=== PATIENT | female | born 1985 | race Two or more races ===

== ENCOUNTER 2024-07-14 22:50 | Inpatient (IN) | payer BC, OTHER ==
[~2024-07-14] VITALS: Ht 170.2 cm; Wt 64.7 kg
[2024-07-14 23:04] VITALS: PULSE 98; RESP 28; O2SAT 100
--- NOTE | 2024-07-14 23:37 | ED.PDOC ---
History of Present Illness HPI Comments 38-year-old female who came to ER for high blood pressure. Patient does have history of hypertension, congestive heart failure and anxiety. States she has been anxious all day, has been having panic attacks. She started having palpitations and shortness of breath which progressively worsened. On scene, paramedics recorded a systolic blood pressure of 280. 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 Hx Family History Family History: Reviewed,noncontributory to illness Social History Smoker: Non-Smoker Alcohol: Denies ETOH Use Drugs: Denies Drug Use Lives In: Home Constitutional: denies: chills, diaphoresis, fatigue, fever, malaise, sweats, weakness, others EENTM: denies: blurred vision, double vision, ear bleeding, ear discharge, ear drainage, ear pain, ear ringing, eye pain, eye redness, hearing loss, mouth pain, mouth swelling, nasal discharge, nose bleeding, nose congestion, nose pain, photophobia, tearing, throat pain, throat swelling, voice changes, others Respiratory: reports: SOB at rest, shortness of breath, SOB with excertion; denies: cough, hemoptysis, orthopnea, stridor, wheezing, others Cardiovascular: reports: palpitations; denies: chest pain, dizzy spells, diaphoresis, Dyspnea on exertion, edema, irregular heart beat, left arm pain, lightheadedness, PND, syncope, others Gastrointestinal: denies: abdomen distended, abdominal pain, blood streaked bowels, constipated, diarrhea, dysphagia, difficulty swallowing, hematemesis, melena, nausea, poor appetite, poor fluid intake, rectal bleeding, rectal pain, vomiting, others Genitourinary: denies: abnormal vagina bleeding, burning, dyspareunia, dysuria, flank pain, frequency, hematuria, incontinence, pain, , vagina discharge, urgency, others Neurological: denies: dizziness, fainting, headache, left sided numbness, left sided weakness, numbness, paresthesia, pre-existing deficit, right sided numbness, right sided weakness, seizure, speech problems, tingling, tremors, weakness, others Musculoskeletal: denies: back pain, gout, joint pain, joint swelling, muscle pain, muscle stiffness, neck pain, others Integumetry: denies: bruises, change in color, change in hair/nails, dryness, laceration, lesions, lumps, rash, wounds, others Allergic/Immunocompromised: denies: Difficulty Healing, Frequent Infections, Hives, Itching, others Hematologic/Lymphatic: denies: anemia, blood clots, easy bleeding, easy bruising, swollen glands, others Endocrine: denies: excessive hunger, excessive sweating, excessive thirst, excessive urination, flushing, intolerance to cold, intolerance to heat, unexplained weight gain, unexplained weight loss, others Psychiatric: reports: anxiety, panic disorder; denies: bipolar disorder, depression, hopeless, schizophrenia, sleepless, suicidal, others Physical Exam General Appearance: No Apparent Distress, Normal HEENT: Normal ENT Inspection, Pharynx Normal, TMs Normal Neck: Full Range of Motion, Non-Tender, Normal, Normal Inspection Respiratory: Chest Non-Tender, Lungs Clear, No Accessory Muscle Use, No Respiratory Distress, Normal Breath Sounds Cardiovascular: No Edema, No JVD, No Murmur, No Gallop, Normal Peripheral Pulses, Regular Rate/Rhythm Breast Exam: Deferred Gastrointestinal: No Organomegaly, Non Tender, No Pulsatile Mass, Normal Bowel Sounds, Soft Genitalia: Deferred Pelvic: Deferred Rectal: Deferred Extremities: No calf tenderness, Normal capillary refill, Normal inspection, Normal range of motion, Non-tender, No pedal edema Musculoskeletal : Apperance: Normal Neurologic: Alert, fire warden II-XII nml as Tested, No Motor Deficits, Normal Affect, Normal Mood, No Sensory Deficits Cerebellar Function: Normal Reflexes: Normal Skin: Dry, Normal Color, Warm Lymphatic: No Adenopathy Was a procedure done? Was a procedure done?: No Differential Dx Considerations may include: Anemia, electrolyte imbalance, anxiety, hypertensive urgency, congestive heart failure X-Ray, Labs, Meds, VS Vital Signs Date Time Temp Pulse Resp B/P (MAP) Pulse Ox O2 Delivery O2 Flow Rate FiO2 07/15/24 00:16 208/139 07/14/24 23:54 100 249/167 07/14/24 23:52 100 24 243/167 07/14/24 23:30 99.0 104 26 227/71 (122) 90 07/14/24 23:02 105 Lab Test 07/14/24 23:43 Range/Units White Blood Count 9.3 4.4-10.8 10^3/uL Red Blood Count 4.39 4.0-5.20 10^6/uL Hemoglobin 12.7 12.2-16.2 g/dL Hematocrit 38.6 36.0-46.0 % Mean Corpuscular Volume 87.9 80.0-100.0 fL Mean Corpuscular Hemoglobin 29.0 28.0-32.0 pg Mean Corpuscular Hemoglobin Concent 33.0 32.0-36.0 g/dL Red Cell Distribution Width 15.1 H 11.8-14.3 % Platelet Count 308 140-450 10^3/uL Mean Platelet Volume 8.8 6.9-10.8 fL Neutrophils (%) (Auto) 82.2 H 37.0-80.0 % Lymphocytes (%) (Auto) 13.2 10.0-50.0 % Monocytes (%) (Auto) 3.8 0.0-12.0 % Eosinophils (%) (Auto) 0.1 0.0-7.0 % Basophils (%) (Auto) 0.7 0.0-2.0 % Neutrophils # (Auto) 7.7 1.6-8.6 10 ^3/uL Lymphocytes # (Auto) 1.2 0.4-5.4 10 ^3/uL Monocytes # (Auto) 0.4 0-1.3 10 ^3/uL Eosinophils # (Auto) 0 0-0.8 10 ^3/uL Basophils # (Auto) 0.1 0-0.2 10 ^3/uL Nucleated Red Blood Cells 0.1 % Sodium Level 137 136-145 mmol/L Potassium Level 3.4 L 3.5-5.1 mmol/L Chloride Level 102 98-107 mmol/L Carbon Dioxide Level 22 20-31 mmol/L Anion Gap 13 5-15 Blood Urea Nitrogen 41 H 9-23 mg/dL Creatinine 3.22 H 0.550-1.02 mg/dL Glomerular Filtration Rate Calc 18 >90 mL/min BUN/Creatinine Ratio 12.7 10.0-20.0 Serum Glucose 118 H 74-106 mg/dL Calcium Level 9.4 8.7-10.4 mg/dL Total Bilirubin 1.2 H 0.2-1.0 mg/dL Aspartate Amino Transferase (AST) 249 H 13-40 U/L Alanine Aminotransferase (ALT) 169 H 7-40 U/L Alkaline Phosphatase 120 H 46-116 U/L Troponin I High Sensitivity 255 *H </=34 ng/L B-Type Natriuretic Peptide > 5000.00 0-100 pg/mL Total Protein 6.9 5.7-8.2 g/dL Albumin 3.8 3.2-4.8 g/dL Current Medications Medications (Trade) Dose Ordered Sig/Yolanda Route Start Time Stop Time Status Last Admin Furosemide (Lasix Injection) 20 mg ONCE ONCE IV 07/14/24 23:30 07/14/24 23:31 DC 07/15/24 00:16 Morphine Sulfate 4 mg ONCE ONCE IV 07/14/24 23:30 07/14/24 23:31 DC 07/14/24 23:52 Ondansetron HCl (Zofran) 4 mg ONCE ONCE IV 07/14/24 23:30 07/14/24 23:31 DC 07/14/24 23:53 Labetalol HCl (Labetalol HCl) 20 mg ONCE ONCE IV 07/14/24 23:30 07/14/24 23:31 DC 07/14/24 23:54 Time of 1ST Reevaluation: 23:30 Reevaluation 1ST: Unchanged Time of 2ND Reevaluation: 00:56 Reevaluation 2ND: Unchanged Patient Education/Counseling: Diagnosis, Treatment Family Education/Counseling: No Family Present Departure 1 Departure Time of Disposition: 00:56 Impression: Primary Impression: Acute coronary syndrome Additional Impressions: Hypertensive emergency Congestive heart failure Disposition: ADMITTED INPATIENT Admit to: Tele Condition: Guarded Critical Care Note Critical Care Time?: Yes (35 min-critical care time only) Critical care comment: Hypertensive urgency Total critical care time: Approximately 36 minutes Due to a high probability of clinically significant, life threatening deterioration, the patient required my highest level of preparedness to intervene emergently and I personally spent this critical care time directly and personally managing the patient. This critical care time included obtaining a history; examining the patient; pulse oximetry; ordering and review of studies; arranging urgent treatment with development of a management plan; evaluation of patient's response to treatment; frequent reassessment; and, discussions with other providers. This critical care time was performed to assess and manage the high probability of imminent, life-threatening deterioration that could result in multi-organ failure. It was exclusive of separately billable procedures and treating other patients. Stability Stability form required: No Heart Score Heart Score: Heart Score Response (Comments) Value History Moderate Suspicious 1 EKG Repolarization Disturb 1 Age <45 0 Risk Factors 1 or 2 risk factors 1 Troponin >3 x's Normal limit 2 Total 5 I personally scribed for MURALI DOUGLAS MD ([email or web address]) on 07/14/24 at 23:37. Electronically submitted by Harley Corrales ([facility]). MURALI DOUGLAS MD Jul 14, 2024 23:37
[2024-07-14] MEDS: MORPHINE SULFATE 4 MG/ML SYR/VIAL IV ONE (23:52)
[2024-07-14] MEDS: ONDANSETRON HCL 4 MG/2 ML VIAL IV ONE (23:53)
[2024-07-14] MEDS: LABETALOL HCL 20 MG/4 ML VL IV ONE (23:54)
[2024-07-14 23:57] LABS: Basophils # (auto) 0.1 10 ^3/uL (0-0.2); Basophils % (auto) 0.7 % (0.0-2.0); Eosinophils # (auto) 0 10 ^3/uL (0-0.8); Eosinophils % (auto) 0.1 % (0.0-7.0); Hematocrit 38.6 % (36.0-46.0); Hemoglobin 12.7 g/dL (12.2-16.2); Lymphocytes # (auto) 1.2 10 ^3/uL (0.4-5.4); Lymphocytes % (auto) 13.2 % (10.0-50.0); Mean Corpuscular Volume 87.9 fL (80.0-100.0); Monocytes # (auto) 0.4 10 ^3/uL (0-1.3); Monocytes % (auto) 3.8 % (0.0-12.0); Neutrophils # (auto) 7.7 10 ^3/uL (1.6-8.6); Neutrophils % (auto) 82.2 % (37.0-80.0); Nucleated Red Blood Cells % 0.1 %; Platelet Count (auto) 308 10^3/uL (140-450); Red Blood Cells 4.39 10^6/uL (4.0-5.20); Red Cell Distribution Width 15.1 % (11.8-14.3); White Blood Cell 9.3 10^3/uL (4.4-10.8)
[2024-07-15 00:12] LABS: Albumin 3.8 g/dL (3.2-4.8); Anion Gap 13 (5-15); BUN/Creatinine Ratio 12.7 (10.0-20.0); Calcium 9.4 mg/dL (8.7-10.4); Carbon Dioxide 22 mmol/L (20-31); Chloride 102 mmol/L (98-107); Sodium 137 mmol/L (136-145)
[2024-07-15 00:13] LABS: Bilirubin, Total 1.2 mg/dL (0.2-1.0); Total Protein 6.9 g/dL (5.7-8.2)
[2024-07-15] MEDS: FUROSEMIDE 20 MG/2 ML VIAL IV ONE (00:16)
[2024-07-15 00:23] LABS: Alanine Aminotransferase 169 U/L (7-40); Alkaline Phosphatase 120 U/L (46-116); Aspartate Aminotransferase 249 U/L (13-40); Blood Urea Nitrogen 41 mg/dL (9-23); Glucose 118 mg/dL (74-106); Potassium 3.4 mmol/L (3.5-5.1)
--- NOTE | 2024-07-15 00:34 | DVH ---
EXAM: XY CHEST PORTABLE CLINICAL HISTORY: SOB TECHNIQUE: Single AP view of the chest WID: COMPARISON: None FINDINGS: Lines and tubes: None Chest: Cardiomegaly with pulmonary vascular congestion. Small left pleural effusion. Mixed airspace opacities in the bilateral lung bases greater on the rig ht. No pneumothorax. The osseous structures are grossly intact. IMPRESSION: 1. Cardiomegaly with pulmonary vascular congestion. 2. Small left pleural effusion. 3. Mixed airspace opacities in the bilateral lung bases, greater on the right which could reflect mul tifocal pneumonia, atelectasis, or pulmonary edema.
[2024-07-15] MEDS: ASPirin 81 mg TAB PO ONE (00:59)
[2024-07-15] MEDS: LABETALOL HCL 20 MG/4 ML VL IV ONE (01:00)
--- NOTE | 2024-07-15 02:44 | DVHHPRES ---
History of Present Illness Resident Creating Document: SOPHIE KEN RESIDENT History of Present Illness Patient is 38-year-old female with past medical history of hypertension, systolic congestive heart failure, pneumothorax, acute respiratory failure and anxiety/panic attacks presented to hospital with chief complaint of worsening shortness of breath, lower extremity swelling and palpitation. During initial evaluation by paramedics patient blood pressure was high at 280, initiated on oxygen. Patient was given antihypertensive medication in emergency department. At the time of evaluation patient continued shortness of breath, on oxygen via nasal cannula around 5-7 L saturating 98%, however patient denying any chest pain. Patient continued to palpitation and shortness of breath. Patient is alert oriented to time place and person able to answer however in mild distress. No any other complaints including headache, fever, chills, cough, sputum produc tion, abdominal pain, muscular weakness, sensory deficits. Given uncontrolled blood pressure, elevated troponin, elevated BNP and x-ray findings showing of pulmonary edema patient will be admitted to the hospital for further management of hypertension and heart failure. Past Medical History Systolic CHF, hypertension, pneumothorax, acute respiratory failure, history of multiple previous episode of TIARA Past Surgical History None Past Social History Patient admitting smoking methamphetamine two days ago. Chronic drug abuse. Patient denying any other drug use. Review of Systems Review of Systems Eyes: No Pain, No Vision change, No Conjunctivae inflammation, No Eyelid inflammation, No Other, No Redness ENT: No Ear pain, No Ear discharge, No Nose pain, No Nose discharge, No Nose c ongestion, No Mouth pain, No Mouth swelling, No Throat pain, No Throat swelling, No Other Cardiovascular: No Chest Pain, No Palpitations, No Orthopnea, No Paroxysmal Noc. Dyspnea, No Edema, No Lt Headedness, No Other Respiratory: No Cough, No Dry, Shortness of breath, No SOB with excertion, No Wheezing, No Hemoptysis, No Pleuritic Pain, No Sputum, No Other Gastrointestinal: No Nausea, No Vomiting, No Abdominal Pain, No Diarrhea, No Constipation, No Melena, No Hematochezia, No Other Genitourinary: No Dysuria, No Frequency, No Incontinence, No Hematuria, No Retention, No Other Musculoskeletal: No other, No neck pain, No shoulder pain, No arm pain, No back pain, No hand pain, No leg pain, No foot pain Skin: No Rash, No Lesions, No Jaundice, No Bruising, No Other Allergies: Coded Allergies: NO KNOWN ALLERGIES (Unverified , 07/14/24) Exam Vital Signs Vital Signs Date Time Temp Pulse Resp B/P (MAP) Pulse Ox O2 Delivery O2 Flow Rate FiO2 07/15/24 01:00 98 213/144 07/14/24 23:52 24 07/14/24 23:30 99.0 90 Exam General Appearance: Cooperative. Well developed. Well nourished. NAD Head Exam: Normal inspection Neck Exam: Normal inspection. Non-tender. Normal alignment Pulmonary/Respiratory: Chest non-tender. Bilateral lower lung base crackles. Cardiovascular/Chest: Regular rhythm, tachycardia. No murmurs. No JVD. Peripheral Pulses: 2+ Radial (R). 2+ Radial (L). 2+ Pedal (R). 2+ Pedal (L) Abdominal Exam: Normal bowel sounds. Soft. Nontender. No hepatospenomegaly. No masses Ankle Exam: Negative ankle edema Lower extremities: 3+ bilateral lower extremity edema Neuro/Mental Status: A&O x4. Coherent Thoughts/Psych: Normal thought pattern. Appropriate mood and affect. Good judgement and insight Appearance: In no acute distress Skin Exam: Normal inspection. Normal color. Warm. Dry Labs/Xrays Labs Test 07/15/24 00:52 07/14/24 23:43 Range/Units Troponin I High Sensitivity 239 *H </=34 ng/L White Blood Count 9.3 4.4-10.8 10^3/uL Red Blood Count 4.39 4.0-5.20 10^6/uL Hemoglobin 12.7 12.2-16.2 g/dL Hematocrit 38.6 36.0-46.0 % Mean Corpuscular Volume 87.9 80.0-100.0 fL Mean Corpuscular Hemoglobin 29.0 28.0-32.0 pg Mean Corpuscular Hemoglobin Concent 33.0 32.0-36.0 g/dL Red Cell Distribution Width 15.1 H 11.8-14.3 % Platelet Count 308 140-450 10^3/uL Mean Platelet Volume 8.8 6.9-10.8 fL Neutrophils (%) (Auto) 82.2 H 37.0-80.0 % Lymphocytes (%) (Auto) 13.2 10.0-50.0 % Monocytes (%) (Auto) 3.8 0.0-12.0 % Eosinophils (%) (Auto) 0.1 0.0-7.0 % Basophils (%) (Auto) 0.7 0.0-2.0 % Neutrophils # (Auto) 7.7 1.6-8.6 10 ^3/uL Lymphocytes # (Auto) 1.2 0.4-5.4 10 ^3/uL Monocytes # (Auto) 0.4 0-1.3 10 ^3/uL Eosinophils # (Auto) 0 0-0.8 10 ^3/uL Basophils # (Auto) 0.1 0-0.2 10 ^3/uL Nucleated Red Blood Cells 0.1 % Sodium Level 137 136-145 mmol/L Potassium Level 3.4 L 3.5-5.1 mmol/L Chloride Level 102 98-107 mmol/L Carbon Dioxide Level 22 20-31 mmol/L Anion Gap 13 5-15 Blood Urea Nitrogen 41 H 9-23 mg/dL Creatinine 3.22 H 0.550-1.02 mg/dL Glomerular Filtration Rate Calc 18 >90 mL/min BUN/Creatinine Ratio 12.7 10.0-20.0 Serum Glucose 118 H 74-106 mg/dL Calcium Level 9.4 8.7-10.4 mg/dL Total Bilirubin 1.2 H 0.2-1.0 mg/dL Aspartate Amino Transferase (AST) 249 H 13-40 U/L Alanine Aminotransferase (ALT) 169 H 7-40 U/L Alkaline Phosphatase 120 H 46-116 U/L B-Type Natriuretic Peptide > 5000.00 0-100 pg/mL Total Protein 6.9 5.7-8.2 g/dL Albumin 3.8 3.2-4.8 g/dL Assessment/Plan Assessment/Plan Hypertensive emergency Acute on chronic systolic heart failure Acute respiratory failure due to above NSTEMI type 2 likely due to CHF exacerbation Hypertensive encephalopathy Questionable pneumonia Gram-positive versus Gram-negative TIARA on CKD stage 4 likely hemodynamically mediated in setting of CHF Hypokalemia Transaminitis History of drug abuse History of pneumothorax Plan -initiate Lasix drip at 4 milligram/hour rate, continue to monitor urine output -patient was given beta rocco labetalol for hypertensive emergency, avoid beta rocco given underlying heart failure and pulmonary edema. -we will give p.r.n. clonidine/hydralazine as needed for controlling blood pressure, currently blood pressure is ranging around 180/110. -can resume home medication when necessary: Lisinopril 40 mg p.o. daily, hydrochlorothiazide 25 mg p.o. daily, amlodipine 5 mg p.o. daily, clonidine 0.5 mg/day patch, metoprolol tartrate 50 mg p.o. daily, carvedilol 12.5 mg p.o. daily. -follow with head CT, echocardiogram. -cardiology consultation for hypertensive emergency, CHF and NSTEMI -nephrology consultation for TIARA on CKD stage 4 -antibiotic with ceftriaxone azithromycin, follow with sputum culture. -admit to telemetry. Given uncontrolled hypertension, CHF and TIARA patient will be benefitted from inpatient hospitalization for further management and evaluation. We are expecting more than two days of stay for hospitalization. Code status discussed greater than 22 minutes, full code. Plan discussed with Dr Manuel Plan discussed with: Patient, Other (RN) My Orders Orders - SOPHIE KEN RESIDENT Procedure Category Date Status Time Sodium Chl 0.9% PHA 07/15/24 In Process (So... W/Furosemide 02:30 Abdomen Limited US 07/15/24 Logged 02:[address] 07/15/24 Logged 02:22 Echo 2d Mode Cardiac US 07/15/24 Logged DOP 02:22 * Cardiology Consult CONS 07/15/24 Transmitted 02:23 Urinalysis LAB 07/15/24 Logged 02:24 Drug Screen LAB 07/15/24 Logged 02:24 Atorvastatin (Lipitor) PHA 07/15/24 Logged 02:30 Aspirin Tablet PHA 07/15/24 Logged 10:00 Atorvastatin (Lipitor) PHA 07/15/24 Logged 22:00 Clonidine Hcl Tablet PHA 07/15/24 Logged (Catapres Tablet) 02:30 Ceftriaxone 1gm/50ml PHA 07/16/24 Logged D5w (Rocephin) 09:00 Ceftriaxone 1gm/50ml PHA 07/15/24 Logged D5w (Rocephin) 02:30 Azithromycin 500mg/ PHA 07/16/24 Logged 250ml (Zithromax 50 10:00 Azithromycin 500mg/ PHA 07/15/24 Logged 250ml (Zithromax 50 02:30 Potassium Effervesent PHA 07/15/24 Logged Tab (Klor-Con/Ef) 02:30 Magnesium LAB 07/15/24 Transmitted 02:31 Date of Service: Jul 15, 2024 Billing Provider: ROBBY MANUEL MD Common Visit Codes: [id number] INP/OBS CARE (HIGH) SOPHIE KEN RESIDENT Jul 15, 2024 02:44 ROBBY MANUEL MD Jul 15, 2024 10:41
[2024-07-15] MEDS: FUROSEMIDE INJECTION 10 ML ONE (02:45)
[2024-07-15] MEDS: FUROSEMIDE INJECTION 100 MG in SODIUM CHL 0.9% 100 ML IV ONE (02:48)
[2024-07-15] MEDS: hydrALAZINE HCL 20 MG/ML VL IV ONE ×2 (02:50→09:16)
[2024-07-15] MEDS: metOLazone 5 MG TAB PO ONE (02:55)
[2024-07-15] MEDS: cefTRIAXone 1GM/50ML D5W 50 ML IV ONE (03:00)
[2024-07-15] MEDS: ATORVASTATIN 20 MG TAB PO ONE (03:01)
[2024-07-15] MEDS: POTASSIUM EFFERVESENT TAB 25 MEQ PO ONE ×2 (03:02→15:54)
--- NOTE | 2024-07-15 03:35 | DVH ---
Examination: HWOCT CLINICAL INDICATION: ;hypertensive encephalopathy DIREAS;Reason for Exam: Portable;Portable;Modes of Transportation DITRAN S;How is patient transported? ;1 ITS.LMP;Last menstrual period: N;No;Yes/No/Unknown ITS.PREG; ? COMPARISON: None. CONTRAST USED: None. TECHNIQUE: A plain CT study of brain is performed. The examination was performed obtaining 5 mm slic es without contrast. CT scan was done according to ALARA (As Low as Reasonably Achievable). Multiplan ar reconstructions were obtained. FINDINGS: SUPRATENTORIAL BRAIN: Cerebral Hemispheres: There is no midline shift or mass effect, intra or extra-axial fluid collection s or hemorrhage. Periventricular White Matter/Basal Ganglia: No abnormal areas of altered attenuation within the periv entricular white matter or basal ganglia. POSTERIOR FOSSA: The brainstem is normal and the visualized cerebellar hemispheres are unremarkable. VENTRICULAR SYSTEM: Slightly asymmetrical both lateral ventricles with the left one being prominent, a normal variation. There is no evidence of hydrocephalus or transependymal flow of cerebrospinal fluid. SKULL BASE AND PARASELLAR REGION: The skull base is normal with no parasellar masses or abnormalities identified. CALVARIUM AND SCALP REGION: Hyperdensities noted over bilateral parieto-occipital scalp. Advised cli nical correlation. PARANASAL SINUSES: No significant inflammatory changes are identified in the visualized paranasal si nuses. IMPRESSION: 1. No evidence of acute large vessel territorial ischemic infarction or intraparenchymal hematoma in current study. 2. Chronic and / or ancillary findings as described above. 3. Advised further evaluation with MRI brain without contrast if clinically indicated. Electronically Signed 07/15/2024 03:34 Lauren Bruno
[2024-07-15] MEDS: AZITHROMYCIN 500MG/ 250ML 250 ML IV ONE (04:43)
--- NOTE | 2024-07-15 04:52 | DVH ---
INDICATION: elevated liver enzyme TECHNIQUE: Multiple real-time sonographic images were obtained of the right upper quadrant. COMPARISON: None FINDINGS: The liver demonstrates pancreas echotexture without focal mass lesions. The liver measures 17.3 cm. There is no intrahepatic or extrahepatic ductal dilatation. The common duct measures 0.3 cm. The gallbladder is without evidence of stone or sludge. The gallbladder wall measures 0.3 cm and is within normal limits. The right kidney measures 10.4 cm. The right kidney is normal in contour, size, and shape. The echo genicity is normal. There is no hydronephrosis. The pancreas is not well visualized due to overlying bowel gas. IMPRESSION: Hepatic steatosis and hepatomegaly. Incidental note of right pleural effusion.
[2024-07-15] MEDS: cloNIDine HCL 0.1 MG TAB PO PRN (05:04)
[2024-07-15] MEDS: cloNIDine HCL 0.1 MG TAB PO ONE (05:38)
--- NOTE | 2024-07-15 06:45 | ECG ---
[facility] Test Date: 2024-07-14 Test Time: 23:02:37 Pat Name: MAREN ORTEGA Department: ER Room: [address] [place] [address] Gender: F Pipeline Operator: [id number] : [id number] Requested By: MURALI DOUGLAS Order Number: [id number] Reading MD: Nader Brennan Measurements Intervals [place] Rate: 105 P: 62 [place]: 146 QRS: 44 QRSD: 91 T: 106 QT: 395 QTc: 523 Interpretive Statements Sinus tachycardia Probable left atrial enlargement Probable left ventricular hypertrophy Nonspecific T abnrm, anterolateral leads Prolonged QT interval Electronically Signed On 07-15-2024 14:49:35 PST by Nader Brennan Please click the below link to view image of tracing.
[2024-07-15 07:47] LABS: Basophils # (auto) 0.1 10 ^3/uL (0-0.2); Eosinophils # (auto) 0 10 ^3/uL (0-0.8); Eosinophils % (auto) 0.4 % (0.0-7.0); Hematocrit 30.6 % (36.0-46.0); Hemoglobin 10.3 g/dL (12.2-16.2); Lymphocytes # (auto) 1.5 10 ^3/uL (0.4-5.4); Lymphocytes % (auto) 19.2 % (10.0-50.0); Mean Corpuscular Hemoglobin 29.6 pg (28.0-32.0); Mean Corpuscular Hgb Conc. 33.7 g/dL (32.0-36.0); Mean Corpuscular Volume 87.8 fL (80.0-100.0); Monocytes # (auto) 0.6 10 ^3/uL (0-1.3); Monocytes % (auto) 7.3 % (0.0-12.0); Neutrophils # (auto) 5.7 10 ^3/uL (1.6-8.6); Neutrophils % (auto) 72.1 % (37.0-80.0); Nucleated Red Blood Cells % 0.1 %; Platelet Count (auto) 258 10^3/uL (140-450); Red Blood Cells 3.48 10^6/uL (4.0-5.20); Red Cell Distribution Width 14.8 % (11.8-14.3); White Blood Cell 7.8 10^3/uL (4.4-10.8)
[2024-07-15 07:53] LABS: Chloride 101 mmol/L (98-107); Sodium 137 mmol/L (136-145)
[2024-07-15 07:54] LABS: Anion Gap 12 (5-15); Calcium 8.9 mg/dL (8.7-10.4); Carbon Dioxide 24 mmol/L (20-31)
[2024-07-15 07:59] LABS: BUN/Creatinine Ratio 14.3 (10.0-20.0)
[2024-07-15 08:00] VITALS: PULSE 89; RESP 12; O2SAT 98
[2024-07-15 09:10] LABS: LDL Cholesterol 100 mg/dL (< 100)
[2024-07-15 09:11] LABS: Cholesterol 163 mg/dL (< 200)
[2024-07-15 09:14] LABS: Blood Urea Nitrogen 44 mg/dL (9-23); Glucose 112 mg/dL (74-106); Potassium 3.4 mmol/L (3.5-5.1)
[2024-07-15 09:16] LABS: HDL Cholesterol 33 mg/dL (40-59); Triglycerides 186 mg/dL (< 150)
[2024-07-15 09:52] LABS: Urine Bacteria None Seen /hpf (None Seen)
[2024-07-15 10:26] LABS: Urine Blood Negative /uL (Negative); Urine Clarity Clear (Clear); Urine Color Colorless (Yellow); Urine Hyaline Cast FEW /lpf (0 - 2); Urine Protein, UAD Negative (Negative); Urine Specific Gravity 1.006 (1.001-1.035); Urine Squamous Epithelial Cell FEW /hpf (<5); Urine Urobilinogen Normal (Negative); Urine WBC 1 /hpf (0 - 5)
[2024-07-15 10:32] LABS: Amphetamine Screen, Urine Pos (NEGATIVE); Barbiturate Scree,Urine Neg (NEGATIVE); Benzodiazephine Screen, Urine Neg (NEGATIVE); Cannabinoid Screen, Urine Neg (NEGATIVE); Cocaine Screen, Urine Neg (NEGATIVE); Opiate Scree,Urine Neg (NEGATIVE); Phencyclidine Screen, Urine Neg (NEGATIVE)
[2024-07-15] MEDS: ASPirin 81 mg TAB PO SCH (11:01)
--- NOTE | 2024-07-15 12:23 | DVHINCON2 ---
Date Seen: Jul 15, 2024 Referring Physician MD [place] resident Reason for Consultation Hypertensive emergency, HFrEF, NSTEMI History of Present Illness This is a 38-year-old female patient who presents to the emergency room with chief complaint of shortness of breath. At the time of assessment, patient is arousable to name but easily falls back asleep and is unable to answer any questions. History obtained from medical records and bedside RN. Initial twelve lead electrocardiogram reveals sinus tachycardia nonspecific ST segment changes to anterolateral leads and prolonged QTc interval. Initial troponin level of 255ng/L with flat trend thereafter. Initial BNP level >5000pg/mL. Significant past medical history includes congestive heart failure, hypertension, pneumothorax, chronic kidney disease, anxiety, and methamphetamine abuse. Unable to verify if the patient follows up with a pricer bagger in the outpatient setting. Past Medical History Past medical history reviewed. No other significant than mentioned above. Past Surgical History Denies Family History Family history reviewed. Social History Toxicology screen positive for methamphetamine use Unable to obtain the patient uses tobacco or alcohol Allergies: Coded Allergies: NO KNOWN ALLERGIES (Unverified , 07/14/24) Home Meds Home medications reviewed. Current Medications Current Medications Medications (Trade) Dose Ordered Sig/Yolanda Route PRN Reason Start Time Stop Time Status Last Admin Aspirin 81 mg DAILY PO 07/15/24 10:00 07/15/24 11:01 Atorvastatin Calcium (Lipitor) 40 mg HS PO 07/15/24 22:00 Clonidine HCl (Catapres Tablet) 0.2 mg Q6HP PRN PO SBP>160 07/15/24 02:30 07/15/24 11:02 Ceftriaxone Sodium 50 ml @ 100 mls/hr DAILY@0200 IV 07/16/24 02:00 Azithromycin 250 ml @ 125 mls/hr DAILY@0300 IV 07/16/24 03:00 Review of Systems Constitutional: No symptom reported Ears, Nose, & Throat: No symptom reported Eyes: No symptom reported Neurological: No symptoms reported Pulmonary/Respiratory: Shortness of breath Cardiovascular: No symptom reported Gastrointestinal: No symptom reported Genitourinary: No symptom reported Musculoskeletal: No symptom reported Skin: No symptom reported Psychiatric: No symptom reported Endocrine: No symptom reported Hematologic/Lymphatic: No symptom reported Vital Signs Vital Signs Date Time Temp Pulse Resp B/P (MAP) Pulse Ox O2 Delivery O2 Flow Rate FiO2 07/15/24 11:02 168/108 07/15/24 11:00 90 17 99 07/15/24 08:00 Nasal Cannula* 2 28 07/15/24 08:00 98.4 98.4 Physical Exam General Appearance: Unkempt, disheveled Pulmonary/Respiratory: Diminished bilateral lower lobe sounds Cardiovascular/Chest: Regular rate and rhythm. Peripheral Pulses: 2+ Radial (R). 2+ Radial (L). 2+ Pedal (R). 2+ Pedal (L) Abdominal Exam: Normal bowel sounds. Ankle Exam: 2+ pitting edema Lower extremities: 2+ pitting edema Neuro/Mental Status: Lethargic Thoughts/Psych: Deferred Appearance: No acute distress. Skin Exam: Normal inspection. Normal color. Warm and dry. Labs/Diagnostic Data Labs Test 07/15/24 09:17 07/15/24 07:24 07/15/24 00:52 07/14/24 23:43 Range/Units Urine Color Colorless Yellow Urine Clarity Clear Clear Urine pH 5.0 5.0-9.0 Urine Specific [place] 1.006 1.001-1.035 Urine Protein Negative Negative Urine Ketones Negative Negative Urine Blood Negative Negative /uL Urine Nitrite Negative Negative Urine Bilirubin Negative Negative Urine Urobilinogen Normal Negative mg/dL Urine Leukocyte Esterase Negative Negative /uL Urine RBC 2 0 - 4 /hpf Urine WBC 1 0 - 5 /hpf Urine Squamous Epithelial Cells Few <5 /hpf Urine Bacteria None seen None Seen /hpf Urine Hyaline Casts Few 0 - 2 /lpf Urine Glucose Normal Normal mg/dL Urine Opiates Screen Neg NEGATIVE Urine Fentanyl Screen Neg NEGATIVE Urine Barbiturates Screen Neg NEGATIVE Urine Phencyclidine Screen Neg NEGATIVE Urine Amphetamines Screen Pos NEGATIVE Urine Benzodiazepines Screen Neg NEGATIVE Urine Cocaine Screen Neg NEGATIVE Urine Cannabinoids Screen Neg NEGATIVE White Blood Count 7.8 4.4-10.8 10^3/uL Red Blood Count 3.48 L 4.0-5.20 10^6/uL Hemoglobin 10.3 #L 12.2-16.2 g/dL Hematocrit 30.6 #L 36.0-46.0 % Mean Corpuscular Volume 87.8 80.0-100.0 fL Mean Corpuscular Hemoglobin 29.6 28.0-32.0 pg Mean Corpuscular Hemoglobin Concent 33.7 32.0-36.0 g/dL Red Cell Distribution Width 14.8 H 11.8-14.3 % Platelet Count 258 140-450 10^3/uL Mean Platelet Volume 8.7 6.9-10.8 fL Neutrophils (%) (Auto) 72.1 37.0-80.0 % Lymphocytes (%) (Auto) 19.2 10.0-50.0 % Monocytes (%) (Auto) 7.3 0.0-12.0 % Eosinophils (%) (Auto) 0.4 0.0-7.0 % Basophils (%) (Auto) 1.0 0.0-2.0 % Neutrophils # (Auto) 5.7 1.6-8.6 10 ^3/uL Lymphocytes # (Auto) 1.5 0.4-5.4 10 ^3/uL Monocytes # (Auto) 0.6 0-1.3 10 ^3/uL Eosinophils # (Auto) 0 0-0.8 10 ^3/uL Basophils # (Auto) 0.1 0-0.2 10 ^3/uL Nucleated Red Blood Cells 0.1 % Sodium Level 137 136-145 mmol/L Potassium Level 3.4 L 3.5-5.1 mmol/L Chloride Level 101 98-107 mmol/L Carbon Dioxide Level 24 20-31 mmol/L Anion Gap 12 5-15 Blood Urea Nitrogen 44 H 9-23 mg/dL Creatinine 3.08 H 0.550-1.02 mg/dL Glomerular Filtration Rate Calc 19 >90 mL/min BUN/Creatinine Ratio 14.3 10.0-20.0 Serum Glucose 112 H 74-106 mg/dL Hemoglobin A1c 4.9 <5.7 % A1C Calcium Level 8.9 8.7-10.4 mg/dL Triglycerides Level 186 H < 150 mg/dL Cholesterol Level 163 < 200 mg/dL LDL Cholesterol 100 H < 100 mg/dL HDL Cholesterol 33 L 40-59 mg/dL Thyroid Stimulating Hormone (TSH) 1.53 0.55-4.78 uIU/mL Plasma/Serum Blood Alcohol < 3.0 <10 mg/dL Magnesium Level 2.3 1.6-2.6 mg/dL Troponin I High Sensitivity 239 *H </=34 ng/L Total Bilirubin 1.2 H 0.2-1.0 mg/dL Aspartate Amino Transferase (AST) 249 H 13-40 U/L Alanine Aminotransferase (ALT) 169 H 7-40 U/L Alkaline Phosphatase 120 H 46-116 U/L B-Type Natriuretic Peptide > 5000.00 0-100 pg/mL Total Protein 6.9 5.7-8.2 g/dL Albumin 3.8 3.2-4.8 g/dL Assessment Acute on chronic decompensated HFrEF, NYHA class IV Hypertensive emergency NSTEMI type II secondary to above Dyslipidemia Chronic kidney disease Transaminitis Methamphetamine abuse Plan/Recommendation We will continue with the following plan/recommendations (): * Echocardiogram to evaluate cardiac function * Strict intake and output, daily weights, maintain fluid restriction * Initiate GDMT for CHF when appropriate * Avoid CAROLYN/ARNI/ARB and spironolactone given TIARA * Avoid SGLT2i given reduced GFR level * Hold beta rocco at this time given recent amphetamine use * Aggressive BP control- isosorbide mononitrate and hydralazine (up-titrate as needed) * Preload and afterload reduction * Lipid-lowering agent, monitor LFTs Thank you for allowing us to care for this patient. Please call with any questions or concerns. Critical care time spent: 41 minutes This medical document was created using an electronic medical record system with voice recognition software and computerized dictation system. Although this document has been carefully reviewed, there might still be some phonetic and typographical errors. Occasional wrong-word or ``sound-alike substitutions may have occurred due to the inherent limitations of voice recognition software. These areas are purely typographical due to imperfections of the software programs and do not reflect any compromise in the patient's medical care. Please read the chart carefully and recognize, using context, where these substitutions have occurred. Plan discussed with: Other (Bedside RN) NYHA Physical activity limitations: Class4(Severe)discomfort (w any activit,symptoms at rest) Date of Service: Jul 15, 2024 Billing Provider: MALINDA MAYA Cardiology Common Codes: 10264-VIBDHXJ INP/OBS CARE (High) Cardiology Consultation Codes: 69367-[id number] CONSULT <45MIN MALINDA MAYA Jul 15, 2024 12:22
--- NOTE | 2024-07-15 12:38 | DVHPNRES ---
Progress Note Date Seen: Jul 15, 2024 Resident Creating Document: NAE STRICKLAND RESIDENT Medical Necessity Reason Pt with a Central, PICC or Fol: No Subjective Review of Systems Patient is a 38-year-old female with past medical history of systolic congestive heart failure diagnosed 6 months ago, hypertension, pneumothorax, anxiety, chronic meth abuse, who came in due to hypertensive emergency. On scene, paramedics reported a systolic blood pressure of 280, patient was placed on oxygen and rushed to the ER. According to the patient, yesterday on 07/14/2024 she has been experiencing panic attacks all day, constant fluttering in her chest which according to her was "driving me crazy", patient notes that previously she was experiencing anxiety but denies having similar symptoms where she felt anxious and discomfort for 14-15 hours. Patient notes that she is compliant with her home medication, however, but unsure which medication is which. On my interaction with the patient, patient was alert and oriented in 4 spheres. Past surgical history: Gastric sleeve, left knee surgery Home medications: Nitroglycerin, potassium chloride, torsemide, Protonix, clonidine patch, metoprolol tartrate, carvedilol, amlodipine, lisinopril, hydrochlorothiazide, bupropion Past Hospitalization: Few months ago for kidney failure? Social & Personal history: Patient lives with her [id number] and is currently unemployed. Patient smokes 6 cigarettes per day for the past 20 years, uses marijuana few times per week. Uses methamphetamine 3-4 times per week, last usage was 2 days ago. Drinks alcohol occasionally, last drink was few days ago(patient can not remember) Allergies: Denies Patient seen and examined at bedside. Patient is alert and oriented to time, place person and responding to all questions. General: Fatigue, fever Eyes: No Pain, No Vision change, No Conjunctivae inflammation, No Eyelid inflammation, No Other, No Redness ENT: No Ear pain, No Ear discharge, No Nose pain, Nose discharge, Nose congestion, No Mouth pain, No Mouth swelling, Throat pain, No Throat swelling, No Other Cardiovascular: No Chest Pain, Palpitations, No Orthopnea, Dyspnea, No Edema, No Lt Headedness, No Other Respiratory: Dry cough, Shortness of breath, SOB with exertion, No Wheezing, No Hemoptysis, No Pleuritic Pain, No Sputum, No Other Gastrointestinal: Nausea, No Vomiting, No Abdominal Pain, No Diarrhea, C onstipation, No Melena, No Hematochezia, No Other Genitourinary: Dysuria, No Frequency, No Incontinence, No Hematuria, No Retention, No Other Musculoskeletal: No other, No neck pain, No shoulder pain, No arm pain, No back pain, No hand pain, No leg pain, No foot pain Skin: No Rash, No Lesions, No Jaundice, No Bruising, No Other Objective vital signs Vital Sign Date Time Temp Pulse Resp B/P (MAP) Pulse Ox O2 Delivery O2 Flow Rate FiO2 07/15/24 11:02 168/108 07/15/24 11:00 90 17 99 07/15/24 08:00 Nasal Cannula* 2 28 07/15/24 08:00 98.4 98.4 Total Intake and Output 07/14/24 07/14/24 07/15/24 15:00 23:00 07:00 Intake Total 317.6 ml Balance 317.6 ml medications Current Medications Medications Dose Ordered Sig/Yolanda Route Start Time Stop Time Status Last Admin Dose Admin Aspirin 81 mg DAILY PO 07/15/24 10:00 07/15/24 11:01 81 MG Atorvastatin Calcium 40 mg HS PO 07/15/24 22:00 Clonidine HCl 0.2 mg Q6HP PRN PO 07/15/24 02:30 07/15/24 11:02 0.2 MG Ceftriaxone Sodium 50 ml @ 100 mls/hr DAILY@0200 IV 07/16/24 02:00 Azithromycin 250 ml @ 125 mls/hr DAILY@0300 IV 07/16/24 03:00 Isosorbide Mononitrate 30 mg DAILY PO 07/16/24 10:00 UNV Hydralazine HCl 25 mg Q12HR PO 07/15/24 22:00 UNV Examination General Appearance: Cooperative. Well developed. Well nourished. Patient is arousable, but somnolent and keeps nodding off. GCS 14 Head Exam: Normal inspection Neck Exam: Normal inspection. Non-tender. Normal alignment Pulmonary/Respiratory: Chest non-tender. Clear bilateral breath sounds, c rackles, no wheezing. Cardiovascular/Chest: Regular rate and rhythm. No murmurs. No JVD. Peripheral Pulses: 2+ Radial (R). 2+ Radial (L). 2+ Pedal (R). 2+ Pedal (L) Abdominal Exam: Normal bowel sounds. Soft. normal abdomen, no visible veins, Nontender. No hepatospenomegaly. No masses Ankle Exam: Negative ankle edema Lower extremities: 2+ lower extremity edema Neuro/Mental Status: A&O x4. Coherent. Thoughts/Psych: Normal thought pattern. Appropriate mood and affect. Good judgement and insight Skin Exam: Normal inspection. Normal color. Warm. Dry laboratory and microbiology Laboratory Tests 07/15/24 07:24 Test 07/15/24 07:24 Range/Units Serum Glucose 112 H 74-106 mg/dL Labs and/or images reviewed: Labs reviewed by me, Image(s) reviewed by me Problem List/Assessment/Plan Problem List/Assessment/Plan Hypertensive emergency NSTEMI type 2 due to above Hypertensive encephalopathy, now improving - head CT: No evidence of acute large vessel territorial ischemic infarction or intraparenchymal hematoma and current study. - IV nitroglycerin drip 5 microgram/minute - clonidine 0.2 mg p.o. q.6 as needed for SBP greater than 160 - isosorbide mononitrate 30 mg p.o. daily Acute on chronic systolic heart failure Pulmonary edema Left-sided pleural effusion Acute hypoxic respiratory failure - CXR: Cardiomegaly with pulmonary vascular congestion. Small left pleural effusion. Mixed airspace opacities in the bilateral lung bases greater on the right which could reflect multifocal pneumonia, atelectasis or pulmonary edema. - extremity venous study: No right or left femoropopliteal venous thrombosis - IV furosemide drip at 4 milligrams/hour Pneumonia can not be ruled out, Gram-positive versus Gram-negative - CXR: Cardiomegaly with pulmonary vascular congestion. Small left pleural effusion. Mixed airspace opacities in the bilateral lung bases greater on the right which could reflect multifocal pneumonia, atelectasis or pulmonary edema. - IV azithromycin - IV ceftriaxone TIARA likely hemodynamically mediated/VMN on possible CKD - monitor Dyslipidemia Hepatic steatosis Hepatomegaly - aspirin 81 mg - atorvastatin 40 mg Transaminitis - ultrasound: Hepatic steatosis and hepatomegaly. - monitor Goals of care: Full code, discussed for >16 minutes on 07/15/24 Plan discussed with patient, patient's boyfriend who was present for discussion via telephone Plan discussed with Dr. Manuel critical care time 45 mins Plan discussed with: Patient, Other (RN) My Orders My Orders Orders - NAE [place]ICK[place] RESIDENT Procedure Category Date Status Time Communication Order ORDERS 07/15/24 Transmitted 10:48 Covid19 Antigen Mary LAB 07/15/24 Logged Rapid Influenza A&B LAB 07/15/24 Logged 12:25 Thyroid Stimulating LAB 07/15/24 Logged Hormone 12:25 Bilat Lower Dvt US 07/15/24 Logged 12:25 Date of Service: Jul 15, 2024 Billing Provider: ROBBY MANUEL MD Common Visit Codes: [id number] CARE 30-74 MIN NAE STRICKLAND Jul 15, 2024 12:38 ROBBY MANUEL MD Jul 16, 2024 10:37
[2024-07-15] MEDS: hydrALAZINE HCL 20 MG/ML VL ONE (12:44)
[2024-07-15] MEDS: ISOSORBIDE MONONITRATE ER 60 MG TAB PO ONE (12:58)
[2024-07-15] MEDS: hydrALAZINE HCL 25 MG TAB PO ONE (12:59)
--- NOTE | 2024-07-15 14:08 | DVHSR ---
APPROVED REPORT EXAM: Two-dimensional and M-mode echocardiogram with Doppler and color Doppler. Blood Pressure: 165/105 mmHg INDICATION CHF RISK FACTORS Height: 5' 7", Weight: 116 DIMENSIONS LVDd4.4 (3.8-5.7cm)LA (2D)4.9 (1.9-4.0cm)Aortic Root3.3 (2.0-3.7cm) LVDs3.8 (2.5-4.0cm)LA (MM) (1.9-4.0cm)Aortic Cusp Exc1.9 (1.5-2.0cm) EF (%) 40.0 (55-70%)Rt. Atrium4.0 (1.9-4.0cm)Asc. Aorta cm IVSd1.7 (0.7-1.1cm)RV (D) (1.8-2.4cm) PWd1.6 (0.7-1.1cm) Mitral Valve MitralMitral Stenosis E wave1.00m/sMV Mean GR.mmHg A wave0.80m/sMV Peak GR.mmHg E/A ratio1.32D MVAcm2 Aortic Valve Aortic ValveAortic Stenosis V11.40m/Demetrio Mean GR.8mmHg V21.90m/Demetrio Peak GR.15mmHg LVOT Diameter2.2 (1.8-2.4cm)Doppler AVA2.80cm2 AI P 1/2 Xvyt293.34ms Pulmonic Valve V20.80m/s Tricuspid Valve TR Velocity3.40m/s [id number] Conclusion Technically good study. Sinus rhythm. Concentric LVH with left atrial enlargement. Mild aortic root enlargement. Valves appear to be structurally normal. Left ventricular function is preserved at 55% with normal RV function. There is abnormal septal chavo on. Moderate tricuspid regurgitation. Severe pulmonary hypertension noted. Lvdy-so-ogzvyvec aortic insu fficiency. There is a [id number] pericardial effusion that does not appear to be hemodynamically signific ant. There is no evidence for diastolic collapse of the atrium or ventricle.
--- NOTE | 2024-07-15 15:07 | DVH ---
Bilateral lower extremity venous duplex Clinical History: dvt Comparison: None Technique: Duplex Doppler evaluation of the deep venous systems of both lower extremities from the common femora l veins to the popliteal veins including color Doppler and spectral/pulsed waveform analysis was perf ormed. Findings: RIGHT SIDE: The common femoral vein demonstrates appropriate compressibility and waveform variability. There is compressibility/patency of the great saphenous vein at the proximal thigh. The femoral vein demonstrates appropriate compressibility and waveform variability. The deep femoral vein demonstrates appropriate compressibility and waveform variability. The popliteal vein demonstrates appropriate compressibility and waveform variability. There is normal compressibility at the tibioperoneal trunk. LEFT SIDE: The common femoral vein demonstrates appropriate compressibility and waveform variability. There is compressibility/patency of the great saphenous vein at the proximal thigh. The femoral vein demonstrates appropriate compressibility and waveform variability. The deep femoral vein demonstrates appropriate compressibility and waveform variability. The popliteal vein demonstrates appropriate compressibility and waveform variability. There is normal compressibility at the tibioperoneal trunk. Impression: No right or left femoropopliteal venous thrombosis.
[2024-07-15] MEDS: NITROGLYCERIN 50MG/250ML 250 ML IV SCH (15:54)
--- NOTE | 2024-07-15 20:23 | DVHINCON2 ---
Date of service: Jul 15, [address] Hansen Reason for Consultation acute kidney injury History of Present Illness Ms. Oliver is a 38-year-old female with presentation the hospital with dyspnea on the setting of hypertensive crisis. She is seen in the emergency department. Her clinical course has been notable for antihypertensive medications, she has been on a furosemide infusion, with efficacious results of approximately 6 L of urine output since admission. Serum creatinine was noted to be elevated to the 3 range and that is the reason for this consultation. She states that her shortness of breath has improved since admission. She denies history of excessive use of NSAIDs, recent gross hematuria dysuria , hemoptysis or skin rash. Past Medical History hypertension heart failure Allergies: Coded Allergies: NO KNOWN ALLERGIES (Unverified , 07/14/24) Current Medications Current Medications Medications (Trade) Dose Ordered Sig/Yolanda Route PRN Reason Start Time Stop Time Status Last Admin Aspirin 81 mg DAILY PO 07/15/24 10:00 07/15/24 11:01 Atorvastatin Calcium (Lipitor) 40 mg HS PO 07/15/24 22:00 Clonidine HCl (Catapres Tablet) 0.2 mg Q6HP PRN PO SBP>160 07/15/24 02:30 07/15/24 11:02 Ceftriaxone Sodium 50 ml @ 100 mls/hr DAILY@0200 IV 07/16/24 02:00 Azithromycin 250 ml @ 125 mls/hr DAILY@0300 IV 07/16/24 03:00 Isosorbide Mononitrate (Imdur Er Tablet) 30 mg DAILY PO 07/16/24 10:00 Hydralazine HCl (Apresoline Tablet) 25 mg Q12HR PO 07/15/24 22:00 07/15/24 16:59 DC Nitroglycerin 250 ml @ 1.5 mls/hr Q24H IV 07/15/24 16:00 07/15/24 17:38 Review of Systems as per history of present illness otherwise all systems are reviewed and are noncontributory H&P Exam Vital Signs/I&O Vital Sign Date Time Temp Pulse Resp B/P (MAP) Pulse Ox O2 Delivery O2 Flow Rate FiO2 07/15/24 19:00 93 17 163/96 (118) 99 07/15/24 08:00 Nasal Cannula* 2 28 07/15/24 08:00 98.4 98.4 Intake and Output 07/14/24 07/15/24 19:00 07:00 Intake Total 321.6 ml Balance 321.6 ml Intake IV Total 321.6 ml Physical Exam gen: nad heent: mmm lungs: basilar rales cvs: no rub abd: soft ext: + edema skin: no petechiae neuro: communicative Labs/Diagnostic Data Labs/Diagnostic Data Laboratory Tests Test 07/15/24 09:17 07/15/24 07:24 07/15/24 00:52 07/14/24 23:43 Range/Units Urine Color Colorless Yellow Urine Clarity Clear Clear Urine pH 5.0 5.0-9.0 Urine Specific [place] 1.006 1.001-1.035 Urine Protein Negative Negative Urine Ketones Negative Negative Urine Blood Negative Negative /uL Urine Nitrite Negative Negative Urine Bilirubin Negative Negative Urine Urobilinogen Normal Negative mg/dL Urine Leukocyte Esterase Negative Negative /uL Urine RBC 2 0 - 4 /hpf Urine WBC 1 0 - 5 /hpf Urine Squamous Epithelial Cells Few <5 /hpf Urine Bacteria None seen None Seen /hpf Urine Hyaline Casts Few 0 - 2 /lpf Urine Glucose Normal Normal mg/dL Urine Opiates Screen Neg NEGATIVE Urine Fentanyl Screen Neg NEGATIVE Urine Barbiturates Screen Neg NEGATIVE Urine Phencyclidine Screen Neg NEGATIVE Urine Amphetamines Screen Pos NEGATIVE Urine Benzodiazepines Screen Neg NEGATIVE Urine Cocaine Screen Neg NEGATIVE Urine Cannabinoids Screen Neg NEGATIVE White Blood Count 7.8 9.3 4.4-10.8 10^3/uL Red Blood Count 3.48 L 4.39 4.0-5.20 10^6/uL Hemoglobin 10.3 #L 12.7 12.2-16.2 g/dL Hematocrit 30.6 #L 38.6 36.0-46.0 % Mean Corpuscular Volume 87.8 87.9 80.0-100.0 fL Mean Corpuscular Hemoglobin 29.6 29.0 28.0-32.0 pg Mean Corpuscular Hemoglobin Concent 33.7 33.0 32.0-36.0 g/dL Red Cell Distribution Width 14.8 H 15.1 H 11.8-14.3 % Platelet Count 258 308 140-450 10^3/uL Mean Platelet Volume 8.7 8.8 6.9-10.8 fL Neutrophils (%) (Auto) 72.1 82.2 H 37.0-80.0 % Lymphocytes (%) (Auto) 19.2 13.2 10.0-50.0 % Monocytes (%) (Auto) 7.3 3.8 0.0-12.0 % Eosinophils (%) (Auto) 0.4 0.1 0.0-7.0 % Basophils (%) (Auto) 1.0 0.7 0.0-2.0 % Neutrophils # (Auto) 5.7 7.7 1.6-8.6 10 ^3/uL Lymphocytes # (Auto) 1.5 1.2 0.4-5.4 10 ^3/uL Monocytes # (Auto) 0.6 0.4 0-1.3 10 ^3/uL Eosinophils # (Auto) 0 0 0-0.8 10 ^3/uL Basophils # (Auto) 0.1 0.1 0-0.2 10 ^3/uL Nucleated Red Blood Cells 0.1 0.1 % Sodium Level 137 137 136-145 mmol/L Potassium Level 3.4 L 3.4 L 3.5-5.1 mmol/L Chloride Level 101 102 98-107 mmol/L Carbon Dioxide Level 24 22 20-31 mmol/L Anion Gap 12 13 5-15 Blood Urea Nitrogen 44 H 41 H 9-23 mg/dL Creatinine 3.08 H 3.22 H 0.550-1.02 mg/dL Glomerular Filtration Rate Calc 19 18 >90 mL/min BUN/Creatinine Ratio 14.3 12.7 10.0-20.0 Serum Glucose 112 H 118 H 74-106 mg/dL Hemoglobin A1c 4.9 <5.7 % A1C Calcium Level 8.9 9.4 8.7-10.4 mg/dL Triglycerides Level 186 H < 150 mg/dL Cholesterol Level 163 < 200 mg/dL LDL Cholesterol 100 H < 100 mg/dL HDL Cholesterol 33 L 40-59 mg/dL Thyroid Stimulating Hormone (TSH) 1.53 0.55-4.78 uIU/mL Beta HCG, Quantitative 1.6 1.5-4.2 mIU/mL Plasma/Serum Blood Alcohol < 3.0 <10 mg/dL Magnesium Level 2.3 1.6-2.6 mg/dL Troponin I High Sensitivity 239 *H 255 *H </=34 ng/L Total Bilirubin 1.2 H 0.2-1.0 mg/dL Aspartate Amino Transferase (AST) 249 H 13-40 U/L Alanine Aminotransferase (ALT) 169 H 7-40 U/L Alkaline Phosphatase 120 H 46-116 U/L B-Type Natriuretic Peptide > 5000.00 0-100 pg/mL Total Protein 6.9 5.7-8.2 g/dL Albumin 3.8 3.2-4.8 g/dL Assessment IMP: 1) hemodynamically mediated acute kidney injury in the setting of hypertensive emergency and associated fibrinoid necrosis of renal parenchyma 2) CKD IV? baseline serum creatinine unknown to this consumer loan underwriter 3) acute on chronic diastolic heart failure 4) dyspnea with hypoxia REC: - agree with continued use of loop diuretic to achieve desired ECF volume - electrolyte repletion as needed - We will quantify urine for proteinuria - General recommendations to avoid NSAIDs, intravenous contrast studies if able - will continue to follow closely with you. Thank you for the consultation. Plan discussed with: Other TIANA ARORA MD Jul 15, 2024 20:23
[2024-07-15] MEDS ORDERED: hydrALAZINE HCL 25 MG TAB PO SCH (22:00)
[2024-07-15] MEDS: ATORVASTATIN 20 MG TAB PO SCH (22:00)
[2024-07-15 22:58] VITALS: PULSE 96; RESP 15; O2SAT 95
[2024-07-16] MEDS: cefTRIAXone 1GM/50ML D5W 50 ML IV SCH (02:18)
[2024-07-16] MEDS: HYDROcodone-ACET 5/325MG TAB PO PRN (02:18)
[2024-07-16] MEDS: AZITHROMYCIN 500MG/ 250ML 250 ML IV SCH (03:12)
[2024-07-16 06:29] LABS: Anion Gap 10 (5-15); BUN/Creatinine Ratio 13.5 (10.0-20.0); Calcium 8.8 mg/dL (8.7-10.4)
[2024-07-16 06:34] LABS: Alanine Aminotransferase 105 U/L (7-40); Aspartate Aminotransferase 92 U/L (13-40); Blood Urea Nitrogen 44 mg/dL (9-23); Carbon Dioxide 33 mmol/L (20-31); Chloride 90 mmol/L (98-107); Glucose 112 mg/dL (74-106); Potassium 2.6 mmol/L (3.5-5.1); Sodium 133 mmol/L (136-145)
[2024-07-16] MEDS: FUROSEMIDE INJECTION 100 MG in SODIUM CHL 0.9% 100 ML IV SCH (07:45)
[2024-07-16] MEDS: METOPROLOL SUCCINATE XL 50 MG TAB PO ONE (07:50)
[2024-07-16 07:56] VITALS: PULSE 87; RESP 17
[2024-07-16 08:03] LABS: Basophils # (auto) 0 10 ^3/uL (0-0.2); Basophils % (auto) 0.4 % (0.0-2.0); Eosinophils # (auto) 0.2 10 ^3/uL (0-0.8); Eosinophils % (auto) 2.1 % (0.0-7.0); Hematocrit 27.6 % (36.0-46.0); Hemoglobin 9.4 g/dL (12.2-16.2); Lymphocytes # (auto) 0.9 10 ^3/uL (0.4-5.4); Lymphocytes % (auto) 9.3 % (10.0-50.0); Mean Corpuscular Hemoglobin 29.6 pg (28.0-32.0); Mean Corpuscular Hgb Conc. 34.2 g/dL (32.0-36.0); Mean Corpuscular Volume 86.6 fL (80.0-100.0); Monocytes # (auto) 0.7 10 ^3/uL (0-1.3); Monocytes % (auto) 7.1 % (0.0-12.0); Neutrophils # (auto) 7.7 10 ^3/uL (1.6-8.6); Neutrophils % (auto) 81.1 % (37.0-80.0); Platelet Count (auto) 236 10^3/uL (140-450); Red Blood Cells 3.18 10^6/uL (4.0-5.20); Red Cell Distribution Width 14.9 % (11.8-14.3); White Blood Cell 9.5 10^3/uL (4.4-10.8)
[2024-07-16] MEDS ORDERED: ISOSORBIDE MONONITRATE ER 60 MG TAB PO SCH (10:00)
[2024-07-16] MEDS: POTASSIUM CHL 20MEQ/100ML 100 ML IV SCH (10:14)
[2024-07-16] MEDS: NIFEdipine ER 30 MG TAB PO SCH (10:37)
--- NOTE | 2024-07-16 11:22 | DVHPN2 ---
Consult Progress Note Subjective Other Systems: The patient remains in normal sinus rhythm on ekg monitor tech. Objective vital signs Vital Sign Date Time Temp Pulse Resp B/P (MAP) Pulse Ox O2 Delivery O2 Flow Rate FiO2 07/16/24 10:37 141/79 07/16/24 09:45 91 15 93 07/16/24 07:56 Nasal Cannula* 2 07/15/24 08:00 98.4 98.4 Total Intake and Output 07/15/24 07/15/24 07/16/24 15:00 23:00 07:00 Intake Total 36 ml 839.0 ml 262 ml Output Total 3000 ml 3000 ml Balance -2964 ml -2161.0 ml 262 ml medications Current Medications Medications Dose Ordered Sig/Yolanda Route Start Time Stop Time Status Last Admin Dose Admin Aspirin 81 mg DAILY PO 07/15/24 10:00 07/16/24 10:14 81 MG Atorvastatin Calcium 40 mg HS PO 07/15/24 22:00 Ceftriaxone Sodium 50 ml @ 100 mls/hr DAILY@0200 IV 07/16/24 02:00 07/16/24 02:18 100 MLS/HR Azithromycin 250 ml @ 125 mls/hr DAILY@0300 IV 07/16/24 03:00 07/16/24 03:12 125 MLS/HR Acetaminophen/ Hydrocodone Bitart 1 tab Q6HPRN PRN PO 07/16/24 02:00 07/16/24 02:18 1 TAB Furosemide 100 mg/ Sodium Chloride 110 ml @ 4.4 mls/hr Q24H IV 07/16/24 07:45 Nifedipine 90 mg DAILY PO 07/16/24 10:00 07/16/24 10:37 90 MG Potassium Chloride 100 ml @ 50 mls/hr Q2H IV 07/16/24 09:00 07/16/24 16:59 07/16/24 10:14 50 MLS/HR Examination: GENERAL:Normal, LUNGS:Normal, CVS:Normal, NEURO:Normal laboratory and microbiology Laboratory Tests 07/16/24 05:30 Test 07/16/24 05:30 Range/Units Serum Glucose 112 H 74-106 mg/dL Problem List/Assessment/Plan Problem List/Assessment/Plan Acute on chronic decompensated HFpEF, NYHA class IV Hypertensive emergency NSTEMI type II secondary to above Tricuspid valve regurgitation, moderate degree Severe pulmonary hypertension Dyslipidemia Chronic kidney disease Transaminitis Methamphetamine abuse Plan/Recommendation (): * Echocardiogram reveals EF 55%, RVSP 60 mmHg * Strict intake and output, daily weights, maintain fluid restriction * Initiate GDMT for CHF when appropriate * Avoid CAROLYN/ARNI/ARB and spironolactone given TIARA * Avoid SGLT2i given reduced GFR level * Hold beta rocco at this time given recent amphetamine use * Aggressive BP control- nifedipine * Renal ultrasound * Diuresis as tolerated * Lipid-lowering agent, monitor LFTs Thank you for allowing us to care for this patient. Please call with any questions or concerns. Critical care time spent: 36 minutes This medical document was created using an electronic medical record system with voice recognition software and computerized dictation system. Although this document has been carefully reviewed, there might still be some phonetic and typographical errors. Occasional wrong-word or ``sound-alike substitutions may have occurred due to the inherent limitations of voice recognition software. These areas are purely typographical due to imperfections of the software programs and do not reflect any compromise in the patient's medical care. Please read the chart carefully and recognize, using context, where these substitutions have occurred. Plan discussed with: Patient Date of Service: Jul 16, 2024 Billing Provider: MALINDA MAYA Common Visit Codes: [id number] CARE 30-74 MIN MALINDA MAYA Jul 16, 2024 11:22
--- NOTE | 2024-07-16 11:28 | DVHPNRES ---
Progress Note Date Seen: Jul 16, 2024 Resident Creating Document: VICTOR MANUEL BEE RESIDENT Medical Necessity Reason Pt with a Central, PICC or Fol: No Subjective Review of Systems pt seen and examined at bedside, mentioning of generalized body aches and severe headache. Objective vital signs Vital Sign Date Time Temp Pulse Resp B/P (MAP) Pulse Ox O2 Delivery O2 Flow Rate FiO2 07/16/24 10:37 141/79 07/16/24 09:45 91 15 93 07/16/24 07:56 Nasal Cannula* 2 28 07/15/24 08:00 98.4 98.4 Total Intake and Output 07/15/24 07/15/24 07/16/24 15:00 23:00 07:00 Intake Total 36 ml 839.0 ml 262 ml Output Total 3000 ml 3000 ml Balance -2964 ml -2161.0 ml 262 ml medications Current Medications Medications Dose Ordered Sig/Oylanda Route Start Time Stop Time Status Last Admin Dose Admin Aspirin 81 mg DAILY PO 07/15/24 10:00 07/16/24 10:14 81 MG Atorvastatin Calcium 40 mg HS PO 07/15/24 22:00 Ceftriaxone Sodium 50 ml @ 100 mls/hr DAILY@0200 IV 07/16/24 02:00 07/16/24 02:18 100 MLS/HR Azithromycin 250 ml @ 125 mls/hr DAILY@0300 IV 07/16/24 03:00 07/16/24 03:12 125 MLS/HR Acetaminophen/ Hydrocodone Bitart 1 tab Q6HPRN PRN PO 07/16/24 02:00 07/16/24 02:18 1 TAB Furosemide 100 mg/ Sodium Chloride 110 ml @ 4.4 mls/hr Q24H IV 07/16/24 07:45 Nifedipine 90 mg DAILY PO 07/16/24 10:00 07/16/24 10:37 90 MG Potassium Chloride 100 ml @ 50 mls/hr Q2H IV 07/16/24 09:00 07/16/24 16:59 07/16/24 10:14 50 MLS/HR Examination Examination General Appearance: Alert, Oriented X3, Cooperative, No acute distress HEENT: EOMI Respiratory: Clear to auscultation, Normal air movement Cardiovascular: Regular rate, Normal S1, Normal S2 Abdominal: Normal bowel sounds Extremities: No cyanosis, No edema, Normal pulses, No tenderness/swelling Skin: No rashes, No breakdown Neuro: Normal speech and tone laboratory and microbiology Laboratory Tests 07/16/24 05:30 Test 07/16/24 05:30 Range/Units Serum Glucose 112 H 74-106 mg/dL Labs and/or images reviewed: Labs reviewed by me, Image(s) reviewed by me Problem List/Assessment/Plan Problem List/Assessment/Plan Assessment/Plan Hypertensive emergency NSTEMI type 2 due to above Hypertensive encephalopathy, now improving - head CT: No evidence of acute large vessel territorial ischemic infarction or intraparenchymal hematoma and current study. - IV nitroglycerin drip 5 microgram/minute, pt refused - clonidine 0.2 mg p.o. q.6 as needed for SBP greater than 160 - nifedipine started by the Acute on chronic systolic heart failure Pulmonary edema Left-sided pleural effusion Acute hypoxic respiratory failure - CXR: Cardiomegaly with pulmonary vascular congestion. Small left pleural effusion. Mixed airspace opacities in the bilateral lung bases greater on the right which could reflect multifocal pneumonia, atelectasis or pulmonary edema. - extremity venous study: No right or left femoropopliteal venous thrombosis - IV furosemide drip at 4 milligrams/hour, discontinued and switched to IV 40mg BID Pneumonia can not be ruled out, Gram-positive versus Gram-negative - CXR: Cardiomegaly with pulmonary vascular congestion. Small left pleural effusion. Mixed airspace opacities in the bilateral lung bases greater on the right which could reflect multifocal pneumonia, atelectasis or pulmonary edema. - IV azithromycin - IV ceftriaxone TIARA likely hemodynamically mediated/VMN on possible CKD - monitor Dyslipidemia Hepatic steatosis Hepatomegaly - aspirin 81 mg - atorvastatin 40 mg Transaminitis - ultrasound: Hepatic steatosis and hepatomegaly. - monitor Goals of care: Full code, discussed for >22min Plan discussed with patient Plan discussed with Dr. Elizondo critical care time 39 mins Plan discussed with: Patient, Other My Orders My Orders Orders - VICTOR MANUEL BEE Procedure Category Date Status Time Potassium Chl PHA 07/16/24 In Process 20meq/100ml 09:00 Date of Service: Jul 16, 2024 Billing Provider: ROBBY ELIZONDO MD Common Visit Codes: [id number] CARE 30-74 MIN VICTOR MANUEL BEE RESIDENT Jul 16, 2024 11:28 ROBBY ELIZONDO MD Jul 16, 2024 22:45
--- NOTE | 2024-07-16 12:14 | DVH ---
CLINICAL INFORMATION: 38 years old, Female hypertension, hyperlipidemia, diabetes. TECHNIQUE: Duplex Doppler ultrasound of the renal arteries was performed, with color flow and spectr al waveform analysis. Grayscale sonographic imaging of both kidneys was also performed, assisted by fabrice olivares doppler technique. COMPARISON: None FINDINGS: The right kidney measures 10.9 cm. There is no hydronephrosis. Increased cortical echo genicity of the right kidney with normal cortical thickness. The left kidney measures 9.9 cm. There is no hydronephrosis. Increased cortical echogenicity of th e left kidney with normal cortical thickness. Aorta measures 1.9 x 1.7 cm in diameter. Peak systolic velocity of the abdominal aorta measures 120 c entimeter/second. Peak systolic velocity of the right renal artery measures 47 centimeter/second with end-diastolic velocity of 9 centimeter/second. Right renal to aortic ratio is 0.4. Right renal arter y resistive index is 0.8, slightly elevated. Left renal artery peak systolic velocity measures 27 joe timeter/second with end-diastolic velocity of 5 centimeter/second. Left renal to aortic ratio is 0.2. Left renal artery resistive index is 0.81, slightly elevated. Incidental note is made of partially v isualized bilateral pleural effusions. IMPRESSION: 1. No sonographic evidence of significant renal artery stenosis. 2. Increased echogenicity of both kidneys, likely sequela of medical renal disease. 3. Mildly elevated renal artery resistive indices, may be due to intrinsic renal disease. 4. Partially visualized bilateral pleural effusions.
[2024-07-16] MEDS ORDERED: cloNIDine HCL 0.1 MG TAB PO SCH (14:00)
[2024-07-16 14:14] LABS: Rapid Influenza A Negative (Negative); Rapid Influenza B Negative (Negative)
[2024-07-16 14:36] LABS: COVID19 ANTIGEN SOFIA FIA NEGATIVE (NEGATIVE)
--- NOTE | 2024-07-16 16:34 | DVHPN2 ---
Progress Note - Dictate Date Seen: Jul 16, 2024 Medical Necessity Reason Pt with a Central, PICC or Fol: No Subjective Patient seen in the ER, resting comfortably vital signs Vital Sign Date Time Temp Pulse Resp B/P (MAP) Pulse Ox O2 Delivery O2 Flow Rate FiO2 07/16/24 16:00 91 07/16/24 13:00 14 158/101 (120) 91 07/16/24 07:56 Nasal Cannula* 2 28 07/15/24 08:00 98.4 98.4 Total Intake and Output 07/15/24 07/15/24 07/16/24 14:59 22:59 06:59 Intake Total 36 ml 839.0 ml 266 ml Output Total 3000 ml 3000 ml Balance -2964 ml -2161.0 ml 266 ml medications Current Medications Medications Dose Ordered Sig/Yolanda Route Start Time Stop Time Status Last Admin Dose Admin Aspirin 81 mg DAILY PO 07/15/24 10:00 07/16/24 10:14 81 MG Atorvastatin Calcium 40 mg HS PO 07/15/24 22:00 Ceftriaxone Sodium 50 ml @ 100 mls/hr DAILY@0200 IV 07/16/24 02:00 07/16/24 02:18 100 MLS/HR Azithromycin 250 ml @ 125 mls/hr DAILY@0300 IV 07/16/24 03:00 07/16/24 03:12 125 MLS/HR Acetaminophen/ Hydrocodone Bitart 1 tab Q6HPRN PRN PO 07/16/24 02:00 07/16/24 02:18 1 TAB Nifedipine 90 mg DAILY PO 07/16/24 10:00 07/16/24 10:37 90 MG Potassium Chloride 100 ml @ 50 mls/hr Q2H IV 07/16/24 09:00 07/16/24 16:59 07/16/24 15:27 50 MLS/HR Furosemide 40 mg BIDD IV 07/16/24 18:00 objective gen: nad lungs: Cta cvs: no rub exT: + edema laboratory and microbiology Laboratory Tests 07/16/24 05:30 Test 07/16/24 05:30 Range/Units Serum Glucose 112 H 74-106 mg/dL Assessment/Plan IMP: 1) hemodynamically mediated acute kidney injury in the setting of hypertensive emergency and associated fibrinoid necrosis of renal parenchyma 2) CKD IV? baseline serum creatinine unknown to this advertising copywriter 3) acute on chronic diastolic heart failure 4) dyspnea with hypoxia REC: - supplemental potassium as you are doing - Continue use of loop diuretic to achieve desired ECF volume - Avoidance of RAAS inhibition during time course of TIARA Plan discussed with: Other TIANA ARORA MD Jul 16, 2024 16:34
--- NOTE | 2024-07-16 17:42 | DVH ---
CHEST RADIOGRAPH Indication: pulm vasc congestion Technique: Single frontal view of the chest was obtained Comparison: XY CHEST PORTABLE on DOS: 07/14/24 FINDINGS: Lines and Tubes: None Lungs: Mild interstitial prominence. Left lower lung zone opacification with obscuration of the left hemidiaphragm. No pneumothorax. Cardiomediastinal contours: Moderate cardiomegaly Bones: No acute osseous abnormality. IMPRESSION: Moderate cardiomegaly with mild congestive heart failure ; improved from prior imaging. Improving small left-sided pleural effusion with associated atelectasis / pneumonia. Near-complete resolution of right lower lung zone pneumonia/atelectasis.
[2024-07-16] MEDS: FUROSEMIDE 40 MG/4 ML VIAL IV SCH (18:22)
[2024-07-16 18:43] LABS: Hematocrit 29.9 % (36.0-46.0); Hemoglobin 10.2 g/dL (12.2-16.2)
[2024-07-16 18:58] LABS: Anion Gap 7 (5-15); Calcium 8.9 mg/dL (8.7-10.4)
[2024-07-16 19:01] LABS: Carbon Dioxide 36 mmol/L (20-31); Chloride 90 mmol/L (98-107); Sodium 133 mmol/L (136-145)
[2024-07-16 19:03] LABS: BUN/Creatinine Ratio 14.4 (10.0-20.0)
[2024-07-16 19:10] LABS: Blood Urea Nitrogen 44 mg/dL (9-23); Glucose 114 mg/dL (74-106)
[2024-07-16 20:42] VITALS: PULSE 95; RESP 13; O2SAT 97
[2024-07-16] MEDS: POTASSIUM CHL 20MEQ/100ML 100 ML IV ONE (22:32)
[2024-07-17] VITALS (9 sets, daily range): BP systolic 106–163; BP diastolic 48–84; PULSE 81–104; RESP 16–19; TEMP 97.8–99.2; O2SAT 95–98
[2024-07-17] MEDS ORDERED: AMLO1TAB22 PO (06:54)
[2024-07-17] MEDS ORDERED: CARV12.544 PO (06:54)
[2024-07-17] MEDS ORDERED: POTA-36 PO (06:54)
[2024-07-17] MEDS ORDERED: HYDR25TA5 GT (06:54)
[2024-07-17] MEDS ORDERED: PANT40TA2 PO (06:54)
[2024-07-17] MEDS ORDERED: NITR0.4S29 SL (06:54)
[2024-07-17] MEDS ORDERED: TORS10TA12 PO (06:54)
[2024-07-17] MEDS ORDERED: CLON0.3D4 PO (06:54)
[2024-07-17] MEDS ORDERED: METO-158 PO (06:54)
[2024-07-17 08:34] LABS: Basophils # (auto) 0 10 ^3/uL (0-0.2); Basophils % (auto) 0.4 % (0.0-2.0); Eosinophils # (auto) 0.5 10 ^3/uL (0-0.8); Eosinophils % (auto) 5.3 % (0.0-7.0); Hematocrit 29.2 % (36.0-46.0); Hemoglobin 9.9 g/dL (12.2-16.2); Lymphocytes # (auto) 1.1 10 ^3/uL (0.4-5.4); Lymphocytes % (auto) 12.5 % (10.0-50.0); Mean Corpuscular Hemoglobin 29.5 pg (28.0-32.0); Mean Corpuscular Hgb Conc. 34.1 g/dL (32.0-36.0); Mean Corpuscular Volume 86.4 fL (80.0-100.0); Monocytes # (auto) 0.6 10 ^3/uL (0-1.3); Neutrophils # (auto) 6.6 10 ^3/uL (1.6-8.6); Neutrophils % (auto) 74.8 % (37.0-80.0); Platelet Count (auto) 255 10^3/uL (140-450); Red Blood Cells 3.38 10^6/uL (4.0-5.20); Red Cell Distribution Width 14.4 % (11.8-14.3); White Blood Cell 8.8 10^3/uL (4.4-10.8)
[2024-07-17 09:07] LABS: Anion Gap 8 (5-15); Calcium 9.3 mg/dL (8.7-10.4)
[2024-07-17 09:12] LABS: BUN/Creatinine Ratio 14.1 (10.0-20.0); Glucose 96 mg/dL (74-106)
[2024-07-17 09:13] LABS: Blood Urea Nitrogen 41 mg/dL (9-23); Magnesium 2.1 mg/dL (1.6-2.6)
[2024-07-17 09:20] LABS: Carbon Dioxide 37 mmol/L (20-31); Chloride 89 mmol/L (98-107); Sodium 134 mmol/L (136-145)
[2024-07-17 09:22] LABS: Potassium 2.5 mmol/L (3.5-5.1)
[2024-07-17] MEDS: POTASSIUM EFFERVESENT TAB 25 MEQ PO ONE ×3 (09:35→20:36)
[2024-07-17] MEDS: POTASSIUM CHL 20MEQ/100ML 100 ML IV SCH (10:07)
[2024-07-17 12:05] LABS: Hepatitis B Surface Antigen Negative (Negative)
[2024-07-17 13:32] LABS: Hepatitis C Antibody Negative (Negative)
--- NOTE | 2024-07-17 15:43 | DVHPNRES ---
Progress Note Date Seen: Jul 17, 2024 Resident Creating Document: NAE STRICKLAND RESIDENT Medical Necessity Reason Pt with a Central, PICC or Fol: No Subjective Review of Systems Patient is a 38-year-old female with past medical history of systolic congestive heart failure diagnosed 6 months ago, hypertension, pneumothorax, anxiety, chronic meth abuse, who came in due to hypertensive emergency. On scene, paramedics reported a systolic blood pressure of 280, patient was placed on oxygen and rushed to the ER. According to the patient, yesterday on 07/14/2024 she has been experiencing panic attacks all day, constant fluttering in her chest which according to her was "driving me crazy", patient notes that previously she was experiencing anxiety but denies having similar symptoms where she felt anxious and discomfort for 14-15 hours. Patient notes that she is compliant with her home medication, however, but unsure which medication is which. On my interaction with the patient, patient was alert and oriented in 4 spheres. Past surgical history: Gastric sleeve, left knee surgery Home medications: Nitroglycerin, potassium chloride, torsemide, Protonix, clonidine patch, metoprolol tartrate, carvedilol, amlodipine, lisinopril, hydrochlorothiazide, bupropion Past Hospitalization: Few months ago for kidney failure? Social & Personal history: Patient lives with her [id number] and is currently unemployed. Patient smokes 6 cigarettes per day for the past 20 years, uses marijuana few times per week. Uses methamphetamine 3-4 times per week, last usage was 2 days ago. Drinks alcohol occasionally, last drink was few days ago(patient can not remember) Allergies: Denies Patient seen and examined at bedside. Patient is alert and oriented to time, place person and responding to all questions. Patient is more alert today, improved blood pressure., however, severely hypokalemic. Replaced with IV and p.o. potassium. Objective vital signs Vital Sign Date Time Temp Pulse Resp B/P (MAP) Pulse Ox O2 Delivery O2 Flow Rate FiO2 07/17/24 13:00 98.3 84 19 132/84 (100) 95 98.3 07/17/24 02:51 Nasal Cannula* 1 24 Total Intake and Output 07/16/24 07/16/24 07/17/24 15:00 23:00 07:00 Intake Total 150 ml Output Total 3000 ml 2500 ml 2800 ml Balance -3000 ml -2500 ml -2650 ml medications Current Medications Medications Dose Ordered Sig/Yolanda Route Start Time Stop Time Status Last Admin Dose Admin Aspirin 81 mg DAILY PO 07/15/24 10:00 07/17/24 09:37 81 MG Atorvastatin Calcium 40 mg HS PO 07/15/24 22:00 07/16/24 22:33 40 MG Ceftriaxone Sodium 50 ml @ 100 mls/hr DAILY@0200 IV 07/16/24 02:00 07/17/24 02:23 100 MLS/HR Azithromycin 250 ml @ 125 mls/hr DAILY@0300 IV 07/16/24 03:00 07/16/24 03:12 125 MLS/HR Acetaminophen/ Hydrocodone Bitart 1 tab Q6HPRN PRN PO 07/16/24 02:00 07/16/24 02:18 1 TAB Nifedipine 90 mg DAILY PO 07/16/24 10:00 07/17/24 09:36 90 MG Potassium Chloride 100 ml @ 50 mls/hr Q2H IV 07/17/24 09:45 07/17/24 15:44 07/17/24 12:44 50 MLS/HR Examination General Appearance: Cooperative. Well developed. Well nourished. Head Exam: Normal inspection Neck Exam: Normal inspection. Non-tender. Normal alignment Pulmonary/Respiratory: Chest non-tender. Clear bilateral breath sounds, c rackles, improving. no wheezing. Cardiovascular/Chest: Regular rate and rhythm. No murmurs. No JVD. Peripheral Pulses: 2+ Radial (R). 2+ Radial (L). 2+ Pedal (R). 2+ Pedal (L) Abdominal Exam: Normal bowel sounds. Soft. normal abdomen, no visible veins, Nontender. No hepatospenomegaly. No masses Ankle Exam: Negative ankle edema Lower extremities: 1+ lower extremity edema Neuro/Mental Status: A&O x4. Coherent. Thoughts/Psych: Normal thought pattern. Appropriate mood and affect. Good judgement and insight Skin Exam: Normal inspection. Normal color. Warm. Dry laboratory and microbiology Laboratory Tests 07/17/24 07:49 Test 07/17/24 07:49 Range/Units Serum Glucose 96 74-106 mg/dL Labs and/or images reviewed: Labs reviewed by me, Image(s) reviewed by me Problem List/Assessment/Plan Problem List/Assessment/Plan Hypertensive emergency NSTEMI type 2 due to above Hypertensive encephalopathy, now improving - head CT: No evidence of acute large vessel territorial ischemic infarction or intraparenchymal hematoma and current study. - discontinued IV nitroglycerin drip 5 microgram/minute - clonidine 0.2 mg p.o. q.6 as needed for SBP greater than 160 - isosorbide mononitrate 30 mg p.o. daily Acute on chronic systolic heart failure Pulmonary edema Left-sided pleural effusion Acute hypoxic respiratory failure - CXR: Cardiomegaly with pulmonary vascular congestion. Small left pleural effusion. Mixed airspace opacities in the bilateral lung bases greater on the right which could reflect multifocal pneumonia, atelectasis or pulmonary edema. - extremity venous study: No right or left femoropopliteal venous thrombosis - discontinue IV furosemide drip at 4 milligrams/hour Hypokalemia, serum potassium 2.5 - IV potassium 60 mEq, p.o. potassium 25 mEq Pneumonia can not be ruled out, Gram-positive versus Gram-negative - CXR: Cardiomegaly with pulmonary vascular congestion. Small left pleural effusion. Mixed airspace opacities in the bilateral lung bases greater on the right which could reflect multifocal pneumonia, atelectasis or pulmonary edema. - IV azithromycin - IV ceftriaxone TIARA likely hemodynamically mediated/VMN on possible CKD - monitor Dyslipidemia Hepatic steatosis Hepatomegaly - aspirin 81 mg - atorvastatin 40 mg Transaminitis - ultrasound: Hepatic steatosis and hepatomegaly. - monitor Goals of care: Full code, discussed for >16 minutes on 07/15/24 Plan discussed with patient, patient's boyfriend who was present for discussion via telephone Plan discussed with Dr. Manuel Plan discussed with: Patient, Other (RN) My Orders My Orders Orders - NAE STRICKLAND Procedure Category Date Status Time * Major Assembler CONS 07/17/24 Transmitted Consult 04:36 Potassium Chl PHA 07/17/24 In Process 20meq/100ml 09:45 Potassium LAB 07/17/24 Verified 15:41 NAE STRICKLAND Jul 17, 2024 15:43
--- NOTE | 2024-07-17 16:47 | DVHPN2 ---
Progress Note Date Seen: Jul 17, 2024 Medical Necessity Reason Pt with a Central, PICC or Fol: No Subjective Patient reports: No new complaints Objective vital signs Vital Sign Date Time Temp Pulse Resp B/P (MAP) Pulse Ox O2 Delivery O2 Flow Rate FiO2 07/17/24 13:00 98.3 84 19 132/84 (100) 95 98.3 07/17/24 08:00 Room Air* 0 21 Total Intake and Output 07/16/24 07/16/24 07/17/24 15:00 23:00 07:00 Intake Total 150 ml Output Total 3000 ml 2500 ml 2800 ml Balance -3000 ml -2500 ml -2650 ml medications Current Medications Medications Dose Ordered Sig/Yolanda Route Start Time Stop Time Status Last Admin Dose Admin Aspirin 81 mg DAILY PO 07/15/24 10:00 07/17/24 09:37 81 MG Atorvastatin Calcium 40 mg HS PO 07/15/24 22:00 07/16/24 22:33 40 MG Ceftriaxone Sodium 50 ml @ 100 mls/hr DAILY@0200 IV 07/16/24 02:00 07/17/24 02:23 100 MLS/HR Azithromycin 250 ml @ 125 mls/hr DAILY@0300 IV 07/16/24 03:00 07/16/24 03:12 125 MLS/HR Acetaminophen/ Hydrocodone Bitart 1 tab Q6HPRN PRN PO 07/16/24 02:00 07/16/24 02:18 1 TAB Nifedipine 90 mg DAILY PO 07/16/24 10:00 07/17/24 09:36 90 MG Examination: LUNGS:Normal, CVS:Normal, MSK:Normal laboratory and microbiology Laboratory Tests 07/17/24 07:49 Test 07/17/24 07:49 Range/Units Serum Glucose 96 74-106 mg/dL Problem List/Assessment/Plan Problem List/Assessment/Plan 1) hemodynamically mediated acute kidney injury in the setting of hypertensive emergency and associated fibrinoid necrosis of renal parenchyma 2) CKD IV? baseline serum creatinine unknown to this promotion writer 3) acute on chronic diastolic heart failure 4) dyspnea with hypoxia REC: - supplemental potassium as you are doing - Continue use of loop diuretic to achieve desired ECF volume - Avoidance of RAAS inhibition during time course of TIARA Plan discussed with: Patient My Orders My Orders Orders - MICHAEL SOLOMON MD Procedure Category Date Status Time Comprehensive LAB 07/18/24 Verified Metabolic Panel 06:00 Phosphorus LAB 07/18/24 Verified 06:00 MICHAEL SOLOMON MD Jul 17, 2024 16:47
[2024-07-18 01:00] VITALS: BP 140/70; PULSE 95; RESP 18; TEMP 98.7; O2SAT 95
[2024-07-18 04:55] VITALS: BP 163/93; PULSE 81; RESP 18; TEMP 97.9; O2SAT 96
[2024-07-18 08:00] VITALS: PULSE 97
[2024-07-18 08:13] LABS: Albumin 3.7 g/dL (3.2-4.8); Alkaline Phosphatase 90 U/L (46-116); Anion Gap 9 (5-15); BUN/Creatinine Ratio 14.7 (10.0-20.0); Calcium 9.7 mg/dL (8.7-10.4); Glucose 97 mg/dL (74-106)
[2024-07-18 08:14] LABS: Phosphorus 3.3 mg/dL (2.4-5.1); Total Protein 6.5 g/dL (5.7-8.2)
[2024-07-18 08:18] LABS: Alanine Aminotransferase 82 U/L (7-40); Aspartate Aminotransferase 67 U/L (13-40); Bilirubin, Total 0.3 mg/dL (0.2-1.0); Blood Urea Nitrogen 41 mg/dL (9-23); Carbon Dioxide 36 mmol/L (20-31); Chloride 89 mmol/L (98-107); Sodium 134 mmol/L (136-145)
[2024-07-18 08:51] LABS: Basophils # (auto) 0 10 ^3/uL (0-0.2); Basophils % (auto) 0.4 % (0.0-2.0); Eosinophils # (auto) 0.4 10 ^3/uL (0-0.8); Eosinophils % (auto) 4.2 % (0.0-7.0); Hematocrit 31.9 % (36.0-46.0); Hemoglobin 10.7 g/dL (12.2-16.2); Lymphocytes # (auto) 1.1 10 ^3/uL (0.4-5.4); Lymphocytes % (auto) 10.8 % (10.0-50.0); Mean Corpuscular Hemoglobin 29.4 pg (28.0-32.0); Mean Corpuscular Hgb Conc. 33.6 g/dL (32.0-36.0); Mean Corpuscular Volume 87.6 fL (80.0-100.0); Monocytes # (auto) 0.7 10 ^3/uL (0-1.3); Monocytes % (auto) 7.2 % (0.0-12.0); Neutrophils # (auto) 7.9 10 ^3/uL (1.6-8.6); Neutrophils % (auto) 77.4 % (37.0-80.0); Nucleated Red Blood Cells % 0.1 %; Platelet Count (auto) 321 10^3/uL (140-450); Red Blood Cells 3.64 10^6/uL (4.0-5.20); Red Cell Distribution Width 14.9 % (11.8-14.3); White Blood Cell 10.2 10^3/uL (4.4-10.8)
[2024-07-18 09:00] VITALS: BP 150/83; PULSE 43; RESP 16; TEMP 98.7; O2SAT 95
[2024-07-18] MEDS: POTASSIUM EFFERVESENT TAB 25 MEQ PO ONE ×2 (10:31→14:10)
[2024-07-18] MEDS: METOPROLOL TARTRATE 25 MG TAB PO SCH (10:32)
[2024-07-18 12:41] VITALS: BP 164/109; PULSE 103; RESP 18; TEMP 99.1; O2SAT 99
--- NOTE | 2024-07-18 12:58 | DVHPN2 ---
Progress Note Date Seen: Jul 18, 2024 Medical Necessity Reason Pt with a Central, PICC or Fol: No Subjective Patient reports: No new complaints Other Systems: Patient seen and examined by myself today in follow-up Objective vital signs Vital Sign Date Time Temp Pulse Resp B/P (MAP) Pulse Ox O2 Delivery O2 Flow Rate FiO2 07/18/24 12:41 99.1 103 18 164/109 (127) 99 99.1 07/18/24 08:20 Room Air* 0 21 Total Intake and Output 07/17/24 07/17/24 07/18/24 15:00 23:00 07:00 Intake Total 200 ml 1466 ml 1200 ml Output Total 1200 ml 1900 ml Balance 200 ml 266 ml -700 ml medications Current Medications Medications Dose Ordered Sig/Yolanda Route Start Time Stop Time Status Last Admin Dose Admin Aspirin 81 mg DAILY PO 07/15/24 10:00 07/18/24 10:33 81 MG Atorvastatin Calcium 40 mg HS PO 07/15/24 22:00 07/17/24 22:19 40 MG Ceftriaxone Sodium 50 ml @ 100 mls/hr DAILY@0200 IV 07/16/24 02:00 07/18/24 02:07 100 MLS/HR Azithromycin 250 ml @ 125 mls/hr DAILY@0300 IV 07/16/24 03:00 07/18/24 03:10 125 MLS/HR Acetaminophen/ Hydrocodone Bitart 1 tab Q6HPRN PRN PO 07/16/24 02:00 07/16/24 02:18 1 TAB Nifedipine 90 mg DAILY PO 07/16/24 10:00 07/18/24 10:33 90 MG Metoprolol Tartrate 25 mg BID PO 07/18/24 10:00 07/18/24 10:32 25 MG Examination: LUNGS:Normal, CVS:Normal, ABDOMEN:Abnormal laboratory and microbiology Laboratory Tests 07/18/24 06:55 Test 07/18/24 06:55 Range/Units Serum Glucose 97 74-106 mg/dL Problem List/Assessment/Plan Problem List/Assessment/Plan Acute kidney injury superimposed Chronic Kidney Disease secondary hemodynamic mediated Congestive heart failure exacerbation Acute hypoxic respiratory failure Hypertensive urgency Hypokalemia REC: Kidney function stabilize Chronic Kidney Disease stage 4 Increased urine output I agree with diuresis Renal diet Blood pressure control KCL replacement We will continue to follow Plan discussed with: Patient MICHAEL SOLOMON MD Jul 18, 2024 12:58
[2024-07-18 15:23] LABS: Potassium 3.8 mmol/L (3.5-5.1)
[2024-07-18 15:24] LABS: Anion Gap 6 (5-15)
[2024-07-18 15:25] LABS: Calcium 9.3 mg/dL (8.7-10.4)
[2024-07-18 15:30] LABS: BUN/Creatinine Ratio 15.3 (10.0-20.0)
[2024-07-18 15:44] LABS: Blood Urea Nitrogen 43 mg/dL (9-23); Carbon Dioxide 36 mmol/L (20-31); Chloride 89 mmol/L (98-107); Glucose 214 mg/dL (74-106); Sodium 131 mmol/L (136-145)
--- NOTE | 2024-07-18 16:04 | DVHPNRES ---
Progress Note Date Seen: Jul 18, 2024 Resident Creating Document: NAE STRICKLAND RESIDENT Medical Necessity Reason Pt with a Central, PICC or Fol: No Subjective Review of Systems Patient is a 38-year-old female with past medical history of systolic congestive heart failure diagnosed 6 months ago, hypertension, pneumothorax, anxiety, chronic meth abuse, who came in due to hypertensive emergency. On scene, paramedics reported a systolic blood pressure of 280, patient was placed on oxygen and rushed to the ER. According to the patient, yesterday on 07/14/2024 she has been experiencing panic attacks all day, constant fluttering in her chest which according to her was "driving me crazy", patient notes that previously she was experiencing anxiety but denies having similar symptoms where she felt anxious and discomfort for 14-15 hours. Patient notes that she is compliant with her home medication, however, but unsure which medication is which. On my interaction with the patient, patient was alert and oriented in 4 spheres. Past surgical history: Gastric sleeve, left knee surgery Home medications: Nitroglycerin, potassium chloride, torsemide, Protonix, clonidine patch, metoprolol tartrate, carvedilol, amlodipine, lisinopril, hydrochlorothiazide, bupropion Past Hospitalization: Few months ago for kidney failure? Social & Personal history: Patient lives with her [id number] and is currently unemployed. Patient smokes 6 cigarettes per day for the past 20 years, uses marijuana few times per week. Uses methamphetamine 3-4 times per week, last usage was 2 days ago. Drinks alcohol occasionally, last drink was few days ago(patient can not remember) Allergies: Denies Patient seen and examined at bedside. Patient is alert and oriented to time, place person and responding to all questions. Patient is more alert today, improved blood pressure., however, severely hypokalemic. Replaced with IV and p.o. potassium. Objective vital signs Vital Sign Date Time Temp Pulse Resp B/P (MAP) Pulse Ox O2 Delivery O2 Flow Rate FiO2 07/18/24 12:41 99.1 103 18 164/109 (127) 99 99.1 07/18/24 08:20 Room Air* 0 21 Total Intake and Output 07/17/24 07/17/24 07/18/24 15:00 23:00 07:00 Intake Total 200 ml 1466 ml 1200 ml Output Total 1200 ml 1900 ml Balance 200 ml 266 ml -700 ml medications Current Medications Medications Dose Ordered Sig/Yolanda Route Start Time Stop Time Status Last Admin Dose Admin Aspirin 81 mg DAILY PO 07/15/24 10:00 07/18/24 10:33 81 MG Atorvastatin Calcium 40 mg HS PO 07/15/24 22:00 07/17/24 22:19 40 MG Ceftriaxone Sodium 50 ml @ 100 mls/hr DAILY@0200 IV 07/16/24 02:00 07/18/24 02:07 100 MLS/HR Acetaminophen/ Hydrocodone Bitart 1 tab Q6HPRN PRN PO 07/16/24 02:00 07/16/24 02:18 1 TAB Nifedipine 90 mg DAILY PO 07/16/24 10:00 07/18/24 10:33 90 MG Metoprolol Tartrate 25 mg BID PO 07/18/24 10:00 07/18/24 10:32 25 MG Spironolactone 25 mg DAILY PO 07/19/24 10:00 Azithromycin 500 mg DAILY PO 07/19/24 10:00 Future Hold Examination General Appearance: Cooperative. Well developed. Well nourished. Head Exam: Normal inspection Neck Exam: Normal inspection. Non-tender. Normal alignment Pulmonary/Respiratory: Chest non-tender. Clear bilateral breath sounds, c rackles, improving. no wheezing. Cardiovascular/Chest: Regular rate and rhythm. No murmurs. No JVD. Peripheral Pulses: 2+ Radial (R). 2+ Radial (L). 2+ Pedal (R). 2+ Pedal (L) Abdominal Exam: Normal bowel sounds. Soft. normal abdomen, no visible veins, Nontender. No hepatospenomegaly. No masses Ankle Exam: Negative ankle edema Lower extremities: 1+ lower extremity edema Neuro/Mental Status: A&O x4. Coherent. Thoughts/Psych: Normal thought pattern. Appropriate mood and affect. Good judgement and insight Skin Exam: Normal inspection. Normal color. Warm. Dry laboratory and microbiology Laboratory Tests 07/18/24 15:03 07/18/24 06:55 Test 07/18/24 15:03 Range/Units Serum Glucose 214 H 74-106 mg/dL Labs and/or images reviewed: Labs reviewed by me, Image(s) reviewed by me Problem List/Assessment/Plan Problem List/Assessment/Plan Hypertensive emergency NSTEMI type 2 due to above Hypertensive encephalopathy, now improving - head CT: No evidence of acute large vessel territorial ischemic infarction or intraparenchymal hematoma and current study. - discontinued IV nitroglycerin drip 5 microgram/minute - metoprolol 25 mg p.o. b.i.d., nifedipine 90 mg p.o. daily, spironolactone 25 mg p.o. daily Acute on chronic systolic heart failure Pulmonary edema Left-sided pleural effusion Acute hypoxic respiratory failure - CXR: Cardiomegaly with pulmonary vascular congestion. Small left pleural effusion. Mixed airspace opacities in the bilateral lung bases greater on the right which could reflect multifocal pneumonia, atelectasis or pulmonary edema. - extremity venous study: No right or left femoropopliteal venous thrombosis - discontinue IV furosemide drip at 4 milligrams/hour Hypokalemia, serum potassium 2.5 - IV potassium 60 mEq, p.o. potassium 25 mEq - p.o. potassium 50 mEq - ordered urine potassium Pneumonia can not be ruled out, Gram-positive versus Gram-negative - CXR: Cardiomegaly with pulmonary vascular congestion. Small left pleural effusion. Mixed airspace opacities in the bilateral lung bases greater on the right which could reflect multifocal pneumonia, atelectasis or pulmonary edema. - IV azithromycin - IV ceftriaxone TIARA likely hemodynamically mediated/VMN on possible CKD - monitor Dyslipidemia Hepatic steatosis Hepatomegaly - aspirin 81 mg - atorvastatin 40 mg Transaminitis - ultrasound: Hepatic steatosis and hepatomegaly. - monitor Goals of care: Full code, discussed for >16 minutes on 07/15/24 Plan discussed with patient, patient's boyfriend who was present for discussion via telephone Plan discussed with Dr. Manuel Plan discussed with: Patient, Other (RN) My Orders My Orders Orders - NAE STRICKLAND RESIDENT Procedure Category Date Status Time Metoprolol Tartrate PHA 07/18/24 In Process Tablet (Lopressor Ta 10:00 Discontinue Tele NICHO 07/18/24 In Process 14:18 Spironolactone PHA 07/19/24 In Process (Aldactone) 10:00 Urine Potassium LAB 07/18/24 Logged 14:59 Azithromycin Tablet PHA 07/19/24 In Process (Zithromax Tablet) 10:00 Comprehensive LAB 07/19/24 Verified Metabolic Panel 04:00 Complete Blood Count LAB 07/19/24 Verified 04:00 Date of Service: Jul 18, 2024 Billing Provider: ROBBY MANUEL MD Common Visit Codes: 88539-JDW/OBS DISCH DAY >30min EMNAE [facility] Jul 18, 2024 16:04 ROBBY MANUEL MD Jul 19, 2024 08:31
[2024-07-18] MEDS: SPIRONOLACTONE 25 MG TAB PO ONE (16:48)
[2024-07-18 17:24] VITALS: BP 162/99; PULSE 94; RESP 16; TEMP 98.4; O2SAT 98
--- NOTE | 2024-07-19 06:43 | DVHDSRES ---
Discharge Summary Date of Admission Resident Creating Document: NAE STRICKLAND RESIDENT Jul 15, 2024 at 02:54 Date of Discharge: Jul 18, 2024 Admitting Diagnosis Hypertensive emergency Labs/Diagnostic Data: Laboratory Results Test 07/18/24 16:50 07/18/24 15:03 07/18/24 06:55 07/17/24 07:49 Urine Potassium 67 mmol/L (12-62) Sodium Level 131 mmol/L (136-145) Potassium Level 3.8 mmol/L (3.5-5.1) Chloride Level 89 mmol/L (98-107) Carbon Dioxide Level 36 mmol/L (20-31) Anion Gap 6 (5-15) Blood Urea Nitrogen 43 mg/dL (9-23) Creatinine 2.81 mg/dL (0.550-1.02) Glomerular Filtration Rate Calc 21 mL/min (>90) BUN/Creatinine Ratio 15.3 (10.0-20.0) Serum Glucose 214 mg/dL (74-106) Calcium Level 9.3 mg/dL (8.7-10.4) White Blood Count 10.2 10^3/uL (4.4-10.8) Red Blood Count 3.64 10^6/uL (4.0-5.20) Hemoglobin 10.7 g/dL (12.2-16.2) Hematocrit 31.9 % (36.0-46.0) Mean Corpuscular Volume 87.6 fL (80.0-100.0) Mean Corpuscular Hemoglobin 29.4 pg (28.0-32.0) Mean Corpuscular Hemoglobin Concent 33.6 g/dL (32.0-36.0) Red Cell Distribution Width 14.9 % (11.8-14.3) Platelet Count 321 10^3/uL (140-450) Mean Platelet Volume 9.0 fL (6.9-10.8) Neutrophils (%) (Auto) 77.4 % (37.0-80.0) Lymphocytes (%) (Auto) 10.8 % (10.0-50.0) Monocytes (%) (Auto) 7.2 % (0.0-12.0) Eosinophils (%) (Auto) 4.2 % (0.0-7.0) Basophils (%) (Auto) 0.4 % (0.0-2.0) Neutrophils # (Auto) 7.9 10 ^3/uL (1.6-8.6) Lymphocytes # (Auto) 1.1 10 ^3/uL (0.4-5.4) Monocytes # (Auto) 0.7 10 ^3/uL (0-1.3) Eosinophils # (Auto) 0.4 10 ^3/uL (0-0.8) Basophils # (Auto) 0 10 ^3/uL (0-0.2) Nucleated Red Blood Cells 0.1 % Phosphorus Level 3.3 mg/dL (2.4-5.1) Magnesium Level 2.1 mg/dL (1.6-2.6) Total Bilirubin 0.3 mg/dL (0.2-1.0) Aspartate Amino Transferase (AST) 67 U/L (13-40) Alanine Aminotransferase (ALT) 82 U/L (7-40) Alkaline Phosphatase 90 U/L (46-116) Total Protein 6.5 g/dL (5.7-8.2) Albumin 3.7 g/dL (3.2-4.8) Hepatitis B Surface Antigen Negative (Negative) Hepatitis C Antibody Negative (Negative) Test 07/16/24 13:20 07/15/24 09:17 07/15/24 07:24 07/15/24 00:52 Influenza Type A Antigen Negative (Negative) Influenza Type B Antigen Negative (Negative) SARS-CoV-2 Antigen (Rapid) Negative (NEGATIVE) Urine Color Colorless (Yellow) Urine Clarity Clear (Clear) Urine pH 5.0 (5.0-9.0) Urine Specific Mccrory 1.006 (1.001-1.035) Urine Protein Negative (Negative) Urine Ketones Negative (Negative) Urine Blood Negative /uL (Negative) Urine Nitrite Negative (Negative) Urine Bilirubin Negative (Negative) Urine Urobilinogen Normal mg/dL (Negative) Urine Leukocyte Esterase Negative /uL (Negative) Urine RBC 2 /hpf (0 - 4) Urine WBC 1 /hpf (0 - 5) Urine Squamous Epithelial Cells Few /hpf (<5) Urine Bacteria None seen /hpf (None Seen) Urine Hyaline Casts Few /lpf (0 - 2) Urine Glucose Normal mg/dL (Normal) Urine Opiates Screen Neg (NEGATIVE) Urine Fentanyl Screen Neg (NEGATIVE) Urine Barbiturates Screen Neg (NEGATIVE) Urine Phencyclidine Screen Neg (NEGATIVE) Urine Amphetamines Screen Pos (NEGATIVE) Urine Benzodiazepines Screen Neg (NEGATIVE) Urine Cocaine Screen Neg (NEGATIVE) Urine Cannabinoids Screen Neg (NEGATIVE) Hemoglobin A1c 4.9 % A1C (<5.7) Triglycerides Level 186 mg/dL (< 150) Cholesterol Level 163 mg/dL (< 200) LDL Cholesterol 100 mg/dL (< 100) HDL Cholesterol 33 mg/dL (40-59) Thyroid Stimulating Hormone (TSH) 1.53 uIU/mL (0.55-4.78) Beta HCG, Quantitative 1.6 mIU/mL (1.5-4.2) Plasma/Serum Blood Alcohol < 3.0 mg/dL (<10) Troponin I High Sensitivity 239 ng/L (</=34) Test 07/14/24 23:43 B-Type Natriuretic Peptide > 5000.00 pg/mL (0-100) Other Laboratory Tests 07/18/24 15:03 07/18/24 06:55 Brief Hx & Hospital Course: Patient is a 38-year-old female with past medical history of systolic congestive heart failure diagnosed 6 months ago, hypertension, pneumothorax, anxiety, chronic meth abuse, who came in due to hypertensive emergency. On scene, paramedics reported a systolic blood pressure of 280, patient was placed on oxygen and rushed to the ER. According to the patient, yesterday on 07/14/2024 she has been experiencing panic attacks all day, constant fluttering in her chest which according to her was "driving me crazy", patient notes that previously she was experiencing anxiety but denies having similar symptoms where she felt anxious and discomfort for 14-15 hours. Patient notes that she is compliant with her home medication, however, but unsure which medication is which. On my interaction with the patient, patient was alert and oriented in 4 spheres. Hospital course: Patient was noted to have a blood pressure 160 5 x 98, reaching as high as 200 x 125, patient was started on Lasix drip. Head CT showed no evidence of acute large vessel territorial ischemia infarction or intraparenchymal hematoma in current study. Chest x-ray showed cardiomegaly with pulmonary vascular congestion. Small left pleural effusion. Mixed airspace opacities in the bilateral lung bases greater on the right which could reflect multifocal pneumonia, atelectasis or pulmonary edema. Extremity venous study showed no right or left femoropopliteal venous thrombosis. Patient was started on IV azithromycin and IV ceftriaxone. Home medication aspirin, atorvastatin were also continued. Isosorbide mononitrate 30 mg and hydralazine 25 mg, clonidine 0.2 mg., nifedipine 90 mg were also added to further control the blood pressure. Due to patient's blood pressure being uncontrolled, nitroglycerin drip was started which was then discontinued on 07/17/2024. Patient is potassium dropped significantly, which was replaced using IV as well as p.o. potassium. However, patient left against medical advice before further management could be completed. Condition at Discharge: Undetermined Final Diagnosis/Problems List Hypertensive emergency NSTEMI type 2 due to above Hypertensive encephalopathy, now improving Acute on chronic systolic heart failure Pulmonary edema Left-sided pleural effusion Acute hypoxic respiratory failure Hypokalemia Pneumonia, Gram-positive versus Gram-negative TIARA likely hemodynamically mediated/VMN on possible CKD Dyslipidemia Hepatic steatosis Hepatomegaly Transaminitis Discharge Disposition: AMA Discharge Statement: "Patient was advised to return to the ER or call 911 if any headaches, dizziness, shortness of breath, chest pain, abdominal pain, bleeding, fevers, or worsening of medical condition. Patient was counseled about treatment plan, medications, possible side effects, patientverbalized understanding. All questions were answered to the best of my ability. This discharge took greater then 30 minutes in planning, reviewing documentation, counseling the patient, and discussing with other team members." ASSESSMENT ASSESSMENT Assessment Date of Service: Jul 18, 2024 Billing Provider: ROBBY ELIZONDO MD Common Visit Codes: 21348-ZDI/OBS DISCH DAY >30min NAE STRICKLAND RESIDENT Jul 19, 2024 06:43 ROBBY ELIZONDO MD Jul 19, 2024 08:40
[2024-07-19] MEDS ORDERED: SPIRONOLACTONE 25 MG TAB PO SCH (10:00)
[2024-07-19] MEDS ORDERED: AZITHROMYCIN 250 MG TAB PO SCH (10:00)
== END 2024-07-18 20:15 | disposition left against medical advice (07) | DRG 177 ==
LOC: EDBD 22:50 → ER 22:50 → TELE 07-15 02:54 → TELE-E-ADS 07-16 23:49
PROVIDERS: ADMIT Internal Medicine; ATTEND Emergency Medicine
DX: J15.69 Pneumonia due to other Gram-negative bacteria (principal); I21.A1 Myocardial infarction type 2; J96.01 Acute respiratory failure with hypoxia; N17.0 Acute kidney failure with tubular necrosis; I50.43 Acute on chronic combined systolic (congestive) and diastolic (congestive) heart failure; I16.1 Hypertensive emergency; I13.0 Hypertensive heart and chronic kidney disease with heart failure and stage 1 through stage 4 chronic kidney disease, or unspecified chronic kidney disease; I67.4 Hypertensive encephalopathy; N18.4 Chronic kidney disease, stage 4 (severe); J15.9 Unspecified bacterial pneumonia; E78.5 Hyperlipidemia, unspecified; F41.0 Panic disorder [episodic paroxysmal anxiety]; R74.01 Elevation of levels of liver transaminase levels; Z20.822 Contact with and (suspected) exposure to COVID-19; I36.1 Nonrheumatic tricuspid (valve) insufficiency; I27.20 Pulmonary hypertension, unspecified; F15.10 Other stimulant abuse, uncomplicated; K76.0 Fatty (change of) liver, not elsewhere classified; R16.0 Hepatomegaly, not elsewhere classified; Z56.0 Unemployment, unspecified
CPT/HCPCS: 36415; 70450; 71045; 76705; 80048; 80053; 80061; 80307; 80320; 81001; 83036; 83735; 83880; 84100; 84132; 84133; 84443; 84450; 84460; 84484; 84702; 85014; 85018; 85025; 86803; 87340; 87426; 87804; 93306; 93970; 93975; 99291; G0378; J2405; J3480